=== PATIENT | female | born 1990 | race Caucasian/White ===

== ENCOUNTER 2019-03-27 09:55 | Emergency (ER) | payer BC, OTHER ==
[2019-03-27] MEDS ORDERED: CEPHALEXIN 250 MG CAP ONE (11:33)
[2019-03-27] MEDS ORDERED: LIDOCAINE 1% MPF 5 ML VIAL ONE (11:33)
[2019-03-27 11:56] LABS: Urine Blood 1+ (NEG); Urine Glucose NEGATIVE (NEG); Urine Protein TRACE (NEG)
--- NOTE | 2019-03-27 12:35 | EDPHYS ---
Physician Documentation [facility] Name: Darwin Sweeney Age: 28 yrs Sex: Female : 1990 Arrival Date: 03/27/2019 Time: 09:56 Bed 23 Private MD: ED Physician Alonso Heredia HPI: 03/27 11:31 This 28 yrs old Female presents to ER via Ambulatory with complaints of kb Abscess. 11:31 The patient presents with an abscess of the groin. Description: fluctuant, swollen. kb Onset: The symptoms/episode began/occurred 3 day(s) ago. Possible cause(s): unknown. Associated signs and symptoms: Pertinent positives: swelling. Modifying factors: the symptoms are alleviated by nothing, the symptoms are aggravated by pressure, squeezing the lesion and expressing the contents, touching. Severity of symptoms: At their worst the symptoms were moderate, in the emergency department the symptoms are unchanged. The patient has experienced similar episodes in the past. The patient has not recently seen a physician. Pt reports abscess that started 3 days ago to right groin area. . 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 - Coronavirus screen:: The patient has NOT traveled to [place] in the past 14 days. The patient has NOT had contact with known/suspected case of Coronavirus?. - Social history:: Smoking status: Patient denies any tobacco usage or history of. - Ebola Screening: : Patient negative for fever greater than or equal to 101.5 degrees Fahrenheit, and additional compatible Ebola Virus Disease symptoms Patient denies exposure to infectious person Patient denies travel to an Ebola-affected area in the 21 days before illness onset No symptoms or risks identified at this time. ROS: 11:29 Constitutional: Negative for fever, chills, and weight loss, Cardiovascular: Negative kb for chest pain, palpitations, and edema, Respiratory: Negative for shortness of breath, cough, wheezing, and pleuritic chest pain, Abdomen/GI: Negative for abdominal pain, nausea, vomiting, diarrhea, and constipation, Back: Negative for injury and pain, MS/Extremity: Negative for injury and deformity, Neuro: Negative for headache, weakness, numbness, tingling, and seizure. 11:29 Skin: Positive for abscess, of the groin. Exam: 11:29 Constitutional: This is a well developed, well nourished patient who is awake, alert, kb and in no acute distress. Head/Face: Normocephalic, atraumatic. Chest/axilla: Normal chest wall appearance and motion. Nontender with no deformity. No lesions are appreciated. Cardiovascular: Regular rate and rhythm with a normal S1 and S2. No gallops, murmurs, or rubs. Normal PMI, no JVD. No pulse deficits. Respiratory: Lungs have equal breath sounds bilaterally, clear to auscultation and percussion. No rales, rhonchi or wheezes noted. No increased work of breathing, no retractions or nasal flaring. Abdomen/GI: Soft, non-tender, with normal bowel sounds. No distension or tympany. No guarding or rebound. No evidence of tenderness throughout. Back: No spinal tenderness. No costovertebral tenderness. Full range of motion. MS/ Extremity: Pulses equal, no cyanosis. Neurovascular intact. Full, normal range of motion. Neuro: Awake and alert, GCS 15, oriented to person, place, time, and situation. Cranial nerves II-XII grossly intact. Motor strength 5/5 in all extremities. Sensory grossly intact. Cerebellar exam normal. Normal gait. 11:29 Skin: abscess, that is moderate sized, of the groin, with fluctuance, that is marked. Vital Signs: 10:42 BP 112 / 66; Pulse 91; Resp 16 S; Temp 98.3(O); Pulse Ox 99% on R/A; Weight 88.45 kg ca1 (R); Height 5 ft. 2 in. (157.48 cm) (R); 12:30 BP 103 / 58; Pulse 61; Resp 15; Pulse Ox 98% on R/A; vc 10:42 Body Mass Index 35.67 (88.45 kg, 157.48 cm) ca1 Procedures: 12:30 I \T\ D: Incision and drainage was performed for an abscess of the right groin Prepped kb with miguelangel. Anesthetized with 4 ml's 1% Lidocaine. Incised with #11 blade. Drained large amount purulent fluid. Cultures obtained. Abscess cavity explored. Packed with iodoform gauze, Dressing: sterile 4x4 gauze, the patient tolerated the procedure well, 2 incisions made to facilitate drainage of abscess and packing. . MDM: 11:12 Patient medically screened. kb 11:29 Data reviewed: vital signs, nurses notes. Data interpreted: Pulse oximetry: on room air kb is 99 %. Interpretation: normal. 12:32 Counseling: I had a detailed discussion with the patient and/or guardian regarding: the kb historical points, exam findings, and any diagnostic results supporting the discharge/admit diagnosis, the need for outpatient follow up, a general surgeon, to return to the emergency department if symptoms worsen or persist or if there are any questions or concerns that arise at home. ED course: Pt educated to return for worsening symptoms, follow up with a general surgeon to follow abscess progression and with her OB. Has an appt with OB on 04/02/19 and will have abscess re-evaluated. Pt will return or follow up with surgeon sooner if symptoms worsen. 03/27 11:23 Order name: Wound Culture 03/27 11:29 Order name: Urine Dipstick--Ancillary (enter results) 03/27 11:29 Order name: Urine --Ancillary (enter results) bd 03/27 11:56 Order name: Urine --Ancillary; Complete Time: 12:01 EDAK 03/27 11:56 Order name: Urine Dipstick-Ancillary; Complete Time: 12:01 [facility] 03/27 11:23 Order name: I\T\D Setup; Complete Time: 11:39 kb Administered Medications: 11:39 Drug: KeFLEX 500 mg Route: PO; iw 12:40 Follow up: Response: No adverse reaction vc 12:15 Drug: Lidocaine (1 %) 1 vials Volume: 5 ml; Route: Infiltration; vc Disposition: 13:31 Co-signature as Attending Physician, Alonso Heredia MD I agree with the assessment and kdr plan of care. Disposition: 03/27/19 12:35 Discharged to Home. Impression: Cutaneous abscess of groin. - Condition is Stable. - Discharge Instructions: Skin Abscess, [id number], Incision and Drainage, Care After. - Prescriptions for Keflex 500 mg Oral Capsule - take 1 capsule by ORAL route every 8 hours for 10 days; 30 capsule. - Medication Reconciliation Form, Thank You Letter, Antibiotic Education, Prescription Opioid Use form. - Follow up: Emergency Department; When: As needed; Reason: Worsening of condition. Follow up: Private Physician; When: 2 - 3 days; Reason: Recheck today's complaints, Continuance of care, Re-evaluation by your physician. Signatures: Dispatcher [employer] EDMS Sejal Gastelum, KIM-C KIM-CkAlonso Quiroz MD MD kdr Dalia Chávez RN RN iw Leona Ramirez RN RN ca1 Evelyn Toledo RN RN vc Corrections: (The following items were deleted from the chart) 13:00 12:35 03/27/2019 12:35 Discharged to Home. Impression: Cutaneous abscess of groin. vc Condition is Stable. Forms are Medication Reconciliation Form, Thank You Letter, Antibiotic Education, Prescription Opioid Use. Follow up: Emergency Department; When: As needed; Reason: Worsening of condition. Follow up: Private Physician; When: 2 - 3 days; Reason: Recheck today's complaints, Continuance of care, Re-evaluation by your physician. kb
--- NOTE | 2019-03-27 12:35 | ER ---
Nurse's Notes [facility] Name: Darwin Sweeney Age: 28 yrs Sex: Female : 1990 Arrival Date: 03/27/2019 Time: 09:56 Bed 23 Private MD: Diagnosis: Cutaneous abscess of groin Presentation: 03/27 10:39 Presenting complaint: Patient states: Abscess on R groin since 3 days ago and I am ca1 at 14 wks. Transition of care: patient was not received from another setting of care. Onset of symptoms was March 27, 2019. Risk Assessment: Do you want to hurt yourself or someone else? Patient reports no desire to harm self or others. Initial Sepsis Screen: Does the patient meet any 2 criteria? No. Patient's initial sepsis screen is negative. Does the patient have a suspected source of infection? No. Patient's initial sepsis screen is negative. Care prior to arrival: Medication(s) given: Tylenol. 10:39 Method Of Arrival: Ambulatory ca1 10:39 Acuity: EVANGELINA 4 ca1 Triage Assessment: 12:30 General: Appears in no apparent distress. uncomfortable, Behavior is calm, cooperative, vc appropriate for age. Pain: Complains of pain in upper inner thigh of right leg. 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 - Coronavirus screen:: The patient has NOT traveled to [place] in the past 14 days. The patient has NOT had contact with known/suspected case of Coronavirus?. - Social history:: Smoking status: Patient denies any tobacco usage or history of. - Ebola Screening: : Patient negative for fever greater than or equal to 101.5 degrees Fahrenheit, and additional compatible Ebola Virus Disease symptoms Patient denies exposure to infectious person Patient denies travel to an Ebola-affected area in the 21 days before illness onset No symptoms or risks identified at this time. Screenin:30 Abuse screen: Denies threats or abuse. Nutritional screening: No deficits noted. vc Tuberculosis screening: No symptoms or risk factors identified. Fall Risk None identified. Assessment: 11:30 General: Appears in no apparent distress. uncomfortable, Behavior is calm, cooperative, vc appropriate for age. Pain: Complains of pain in right upper thigh, groin area Pain currently is 8 out of 10 on a pain scale. Neuro: Level of Consciousness is awake, alert, obeys commands, Oriented to person, place, time, situation. Cardiovascular: Capillary refill < 3 seconds Patient's skin is warm and dry. Respiratory: Respiratory effort is even, unlabored, Respiratory pattern is regular, symmetrical. GI: No signs and/or symptoms were reported involving the gastrointestinal system. : No signs and/or symptoms were reported regarding the genitourinary system. EENT: No signs and/or symptoms were reported regarding the EENT system. Derm: Wound noted right upper inner thigh. Musculoskeletal: Circulation, motion, and sensation intact. Range of motion: intact in all extremities, Swelling present in right upper inner thigh. 12:37 Reassessment: Patient and/or family updated on plan of care and expected duration. Pain vc level reassessed. Patient is alert, oriented x 3, equal unlabored respirations, skin warm/dry/pink. Patient states feeling better. Patient states symptoms have improved. Vital Signs: 10:42 BP 112 / 66; Pulse 91; Resp 16 S; Temp 98.3(O); Pulse Ox 99% on R/A; Weight 88.45 kg ca1 (R); Height 5 ft. 2 in. (157.48 cm) (R); 12:30 BP 103 / 58; Pulse 61; Resp 15; Pulse Ox 98% on R/A; vc 10:42 Body Mass Index 35.67 (88.45 kg, 157.48 cm) ca1 ED Course: 09:56 Patient arrived in ED. as 10:40 Triage completed. ca1 10:42 Arm band placed on right wrist. ca1 10:45 Sejal Gastelum FNP-C is PHCP. kb 10:45 Alonso Heredia MD is Attending Physician. kb 11:22 Dalia Chávez, MARJ is Primary Nurse. iw 11:30 Patient has correct armband on for positive identification. vc 12:15 Assist provider with I \T\ D: of an abscess on right inner thigh Set up I\T\D tray. vc Performed by Sejal SIMMONS Culture sent to lab. Wound packed. iodoform gauze, Patient tolerated well. 12:15 Patient did not have IV access during this emergency room visit. vc Administered Medications: 11:39 Drug: KeFLEX 500 mg Route: PO; iw 12:40 Follow up: Response: No adverse reaction vc 12:15 Drug: Lidocaine (1 %) 1 vials Volume: 5 ml; Route: Infiltration; vc Outcome: 12:35 Discharge ordered by MD. milton 12:59 Discharged to home ambulatory. vc 12:59 Condition: good 12:59 Discharge instructions given to patient, Instructed on discharge instructions, follow up and referral plans. medication usage, wound care, Demonstrated understanding of instructions, follow-up care, medications, wound care, Prescriptions given X 1. 13:00 Patient left the ED. vc Addendum: 03/31/2019 10:39 Addendum: Culture Results: Positive wound culture. Bacteria is resistant to, has s s intermediate sensitivity, or is not tested against prescribed antibiotics. Report given to MEDARDO for further evaluation and then to lombardi developer for follow up with patient. Phone call Attempt #1 no answer, left VM by He Colvin RN. 12:34 Addendum: Culture Results: Positive wound culture. Bacteria is resistant to, has s g intermediate sensitivity, or is not tested against prescribed antibiotics. Report given to MEDARDO for further evaluation and then to lombardi developer for follow up with patient. Prescription called-in to pharmacy of choice. Levaquine 500 mg PO QD x 7 days, dispense 7 tabs, [facility] in . Signatures: Sejal Gastelum, IRIS GUZMÁNP-He Jara, Dora Wilkinson RN, Irene, RN RN iw Farhana Mariee RN RN ss Leona Ramirez RN RN ca1 Evelyn Toledo RN RN vc Corrections: (The following items were deleted from the chart) 03/27 10:41 10:39 Care prior to arrival: None. ca1 ca1
[2019-03-28 19:08] VITALS: TEMP 98.3
[2019-03-28 19:09] VITALS: BP 103/58; O2SAT 98
== END 2019-03-27 13:00 | disposition home or self-care (01) ==
LOC: ER 09:55
PROC: 0J980ZZ Drainage of Abdomen Subcutaneous Tissue and Fascia, Open Approach (ICD-10-PCS; principal; 2019-03-27)
DX: L02.214 Cutaneous abscess of groin (principal); Z88.5 Allergy status to narcotic agent
CPT/HCPCS: 81003; 81025; 87070; 87077; 87186; 87205; 99284

== ENCOUNTER 2022-07-06 09:38 | Emergency (ER) | payer OTHER ==
--- OUTSIDE RECORDS SUMMARY | 2022-07-06 09:41 | XMS REPORT | Continuity of Care Document ---
:1990 Author Organization [facility] t Address [address] [place] [address]. [address] [place] [address] Care Team Providers Name Role Phone Pcp, Patient Does Not Have A Primary Care Physician [phone] Dion Mejia Attending Clinician Unavailable Ilda Arizmendi Attending Clinician Unavailable Ilene Leung Attending Clinician Unknown, Attending Attending Clinician Unavailable ILENE GONZALES Attending Clinician Unavailable Doctor Unassigned, [place] Attending Clinician Unavailable Only, Adc Pob2 Test Attending Clinician Unavailable Mahesh Valdovinos DO Attending Clinician MAHESH VALDOVINOS Attending Clinician Unavailable Only, Ang Db Test Attending Clinician Unavailable Didi Rouse MD Attending Clinician DIDI ROUSE Attending Clinician Unavailable PAIGE LEES Attending Clinician Unavailable MARYA SAENZ Attending Clinician Unavailable SHIRLEY HURST Attending Clinician Unavailable SHIRLEY HURST Admitting Clinician Unavailable Payers Payer Name Policy Type Policy Number Effective Date Expiration Date S [facility] [id number] 2019 HEALTH CHOICE 00:00:00 [facility]ICAID [facility] [id number] 2020 [facility] HE[facility] CHO[facility] 00:00:00 [facility] [id number] 2020 [facility] HEALTH CHOICE 00:00:00 [facility] [id number] 2018 00:00:00 Problems Condition Condition Condition Status Onset Resolution Last Treating Co mments Source Name Details Category Date Date Treatment Clinician Date Disease Active 2019-02 U nivers depression depression 0-22 it y of 00:00: [address] Nexplanon Nexplanon Disease Active 2019-[address] in place 0-22 ity of 00:00: [address] Morbid Morbid Disease Active Univers obesity obesity 7- [place] 00 [place] dical of [facility] 40.0-49.9 40.0-49.9 Obesity Obesity Disease Active 2018-02 Univers (BMI (BMI 2-23 ity of 30-39.9) 30-39.9) 00:00: [address] [id number] Hypocalcem Problem Comm on ia Spirit - [facility] [id number] Morbid Problem Common obesity Spirit due to - [facility] excess [facility] Obese BMI Problem Common class II 37.0-37.9, Spir it adult - [facility] Tobacco Tobacco Problem Common use use Spirit disorder - [facility] [id number] Non-season Problem Com mon al Spirit [id number] AMBAR Problem Common (generaliz Spirit ed anxiety - [facility] disorder) [facility] Allergies, Adverse Reactions, Alerts Allergy Allergy Status Severity Reaction(s) Onset Inactive Treating Comm ents Source Name Type Date Date Clinician HYDROCOD DRUG Active N/V 2018-02 Univers ONE INGREDI 2-23 ity of 00:00: [address] Hydrocod Propensi Active Nausea 2018-02 Univer s one ty to and/or 2-23 ity of adverse Vomiting 00:00: [place] reaction Medical s Branch acetamin acetamin Active swelling Comm on ophen / ophen / Spirit hydrocod hydrocod - [facility] Social History Social Habit Start Date Stop Date Quantity Comments Source History [facility] o f Alcohol Frequency [place] M edical Branch History [facility] o f Alcohol Std [place] [facility] Drinks Branch History [facility] o f Alcohol Binge [place] [facility] Branch Sex Assigned At [facility] will[facility] - [facility] Exposure to 2022-04-03 2022-04-13 Not sure University of SARS-CoV-2 00:00:00 09:57:00 [facility] (event) Branch Tobacco use and 2022-04-13 2022-04-13 Smokeless tobacco Un iversity of exposure 00:00:00 00:00:00 non-user [facility] Alcohol intake 2022-04-13 2022-04-13 Current drinker Unive rsity of 00:00:00 00:00:00 of alcohol [facility] (finding) Branch Alcohol Comment 2019-02-04 2019-02-04 not during Universit y of 00:00:00 00:00:00 [place] [facility] History of 2019-01-28 Cigarette Smoker Universi ty of tobacco use 00:00:00 [facility] Smoking Status Start Date Stop Date Source Ex-smoker 2022-04-13 00:00:00 2022-04-13 00:00:00 Universi ty of [facility] Current Smoker 2022-02-22 00:00:00 [facility] Medications Ordered Filled Start Stop Current Ordering Indication Dosage Frequency Signature Comments Components Source Medication Medication Date Date Medication? Clinician (SIG) Name Name amoxicillin 2022- Yes [id number] 1{tbl} Take 1 Univers -clavulanat -04-24 tablet by it y of e 00:00: 05:59 mouth in [place] (AUGMENTIN) 00 :00 the Medical 875-125 mg morning Branch per tablet and 1 tablet in the evening. Do all this for 10 days. amoxicillin 2022- Yes [id number] 1{tbl} Take 1 Univers -clavulanat 3-12 tablet by it y of e 00:00: 05:59 mouth in [place] (AUGMENTIN) 00 :00 the Medical 875-125 mg morning Branch per tablet and 1 tablet in the evening. Do all this for 10 days. methylPREDN methylPREDN 2022- No QD methylPRED ISolone 4 ISolone 4 02-22 NISolone 4 MG MG 00:00: 00:00 MG 00 :00 methylPREDN methylPREDN 0 2022- No QD methylPRED ISolone 4 ISolone 4 -10 -16 NISolone 4 MG MG 00:00: 00:00 MG 00 :00 Phentermine Phentermine 2021- No 1{table QD Phentermin HCl 37.5 MG HCl 37.5 MG 906 t} e HCl 37.5 00:00: 00:00 MG 00 :00 amoxicillin 2021-2021- No [id number] 1{tbl} Take 1 Univers -clavulanat 09-29 tablet by it y of e 00:00: 04:59 mouth in [place] (AUGMENTIN) 00 :00 the Medical 875-125 mg morning Branch per tablet and 1 tablet in the evening. Do all this for 10 days. Phentermine Phentermine 2021- No 1{table QD Phentermin HCl 37.5 MG HCl 37.5 MG 8-04 t} e HCl 37.5 00:00: 00:00 MG 00 :00 Phentermine Phentermine 2021-2021- No 1{table QD Phentermin HCl 37.5 MG HCl 37.5 MG 7-04 t} e HCl 37.5 00:00: 00:00 MG 00 :00 Phentermine Phentermine 2021-2021- No 1{table QD Phentermin HCl 37.5 MG HCl 37.5 MG 7-06 20-04 t} e HCl 37.5 00:00: 00:00 MG 00 :00 Phentermine Phentermine 2021-2021- No 1{table QD Phentermin HCl 37.5 MG HCl 37.5 MG 7- t} e HCl 37.5 00:00: 00:00 MG 00 :00 Phentermine Phentermine 2021-2021- No 1{table QD Phentermin HCl 37.5 MG HCl 37.5 MG 7-06 20-04 t} e HCl 37.5 00:00: 00:00 MG 00 :00 Phentermine Phentermine 2021-2021- No 1{table QD Phentermin HCl 37.5 MG HCl 37.5 MG 704 t} e HCl 37.5 00:00: 00:00 MG 00 :00 Phentermine Phentermine 2021- No 1{table QD Phentermin HCl 37.5 MG HCl 37.5 MG 08-17 t} e HCl 37.5 00:00: 00:00 MG 00 :00 Escitalopra Escitalopra 0 No QD Escitalopr m Oxalate m Oxalate 5-16 am Oxalate 10 MG 10 MG 00:00: 10 MG 00 Escitalopra Escitalopra 0 No QD Escitalopr m Oxalate m Oxalate 5-16 am Oxalate 10 MG 10 MG 00:00: 10 MG 00 Tretinoin Tretinoin No QD 0.025 % 0.025 % 02-16 00:00: 00 Minocycline Minocycline 2021- No 1{table QD HCl 100 MG HCl 100 MG 02-16 t} 00:00: 00:00 00 :00 Spironolact Spironolact 2020-02- No 1{table QD Spironolac one 25 MG one 25 MG 03-14 t} tone 25 MG 00:00: 00:00 00 :00 Adapalene Adapalene 2020-02- No QD Adapalene 0.3 % 0.3 % 03-14 0.3 % 00:00: 00:00 00 :00 Spironolact Spironolact 2020-2021- No 1{table QD Spironolac one 25 MG one 25 MG 03-14 t} tone 25 MG 00:00: 00:00 00 :00 Adapalene Adapalene 2020-02- No QD Adapalene 0.3 % 0.3 % 03-14 0.3 % 00:00: 00:00 00 :00 SERTRALINE 2019-02 Yes [id number] 25mg TAKE 1 U nivers 25 mg 2-14 TABLET BY ity of tablet 00:00: [address] Branch SERTRALINE 2019-02 Yes [id number] 25mg TAKE 1 U nivers 25 mg 2-14 TABLET BY ity of tablet 00:00: [facility] Branch SERTRALINE 2019-02 Yes [id number] 25mg TAKE 1 U nivers 25 mg 2-14 TABLET BY ity of tablet 00:00: MOUTH [place] 00 DAILY Medical Branch SERTRALINE 2020-1 Yes [id number] 25mg TAKE 1 U nivers 25 mg 2-14 TABLET BY ity of tablet 00:00: MOUTH [place] 00 DAILY Medical Branch SERTRALINE 2020-1 Yes [id number] 25mg TAKE 1 U nivers 25 mg 2-14 TABLET BY ity of tablet 00:00: MOUTH [place] 00 DAILY Medical Branch SERTRALINE 2020-1 Yes [id number] 25mg TAKE 1 U nivers 25 mg 2-14 TABLET BY ity of tablet 00:00: MOUTH [place] 00 DAILY Medical Branch SERTRALINE 2020-1 Yes [id number] 25mg TAKE 1 U nivers 25 mg 2-14 TABLET BY ity of tablet 00:00: MOUTH [place] 00 DAILY Medical Branch 2020-0 Yes [id number] 1{tbl} Take 1 Univers vitamin 8-06 tablet by ity of w/FA tablet 00:00: mouth [place] 00 daily. Medical Branch docusate 2020-0 Yes [id number] 240mg Take 1 U nivers calcium 240 8-06 capsule by it y of mg capsule 00:00: mouth [place] 00 daily as Medical needed for Branch Constipati on. ferrous 2020-0 Yes [id number] 325mg Take 1 Un peggy sulfate 325 8-06 tablet by ity of mg (65 mg 00:00: mouth 2 [place] iron) 00 (two) Medical tablet times Branch daily. ibuprofen 2020-0 Yes [id number] 600mg Take 1 Univers 600 mg 8-06 tablet by ity of tablet 00:00: mouth [place] 00 every 6 Medical (six) Branch hours as needed for Pain (scale 1-3) or Pain (scale 4-6) (Pain). Take with food or milk. 2020-0 Yes [id number] 1{tbl} Take 1 Univers vitamin 8-06 tablet by ity of w/FA tablet 00:00: mouth [place] 00 daily. Medical Branch docusate 2020-0 Yes [id number] 240mg Take 1 U nivers calcium 240 8-06 capsule by it y of mg capsule 00:00: mouth [place] 00 daily as Medical needed for Branch Constipati on. ferrous 2020-0 Yes [id number] 325mg Take 1 Un peggy sulfate 325 8-06 tablet by ity of mg (65 mg 00:00: mouth 2 [place] iron) 00 (two) Medical tablet times Branch daily. ibuprofen 2020-0 Yes [id number] 600mg Take 1 Univers 600 mg 8-06 tablet by ity of tablet 00:00: mouth [place] 00 every 6 Medical (six) Branch hours as needed for Pain (scale 1-3) or Pain (scale 4-6) (Pain). Take with food or milk. 2020-0 Yes [id number] 1{tbl} Take 1 Univers vitamin 8-06 tablet by ity of w/FA tablet 00:00: mouth [place] 00 daily. Medical Branch docusate 2020-0 Yes [id number] 240mg Take 1 U nivers calcium 240 8-06 capsule by it y of mg capsule 00:00: mouth once [place] 00 daily as Medical needed for Branch Constipati on. ferrous 2020-0 Yes [id number] 325mg Take 1 Un peggy sulfate 325 8-06 tablet by ity of mg (65 mg 00:00: mouth 2 [place] iron) 00 (two) Medical tablet times Branch daily. ibuprofen 2020-0 Yes [id number] 600mg Take 1 Univers 600 mg 8-06 tablet by ity of tablet 00:00: mouth [place] 00 every 6 Medical (six) Branch hours as needed for Pain (scale 1-3) or Pain (scale 4-6) (Pain). Take with food or milk. 2020-0 Yes [id number] 1{tbl} Take 1 Univers vitamin 8-06 tablet by ity of w/FA tablet 00:00: mouth [place] 00 daily. Medical Branch docusate 2020-0 Yes [id number] 240mg Take 1 U nivers calcium 240 8-06 capsule by it y of mg capsule 00:00: mouth [place] 00 daily as Medical needed for Branch Constipati on. ferrous 2020-0 Yes [id number] 325mg Take 1 Un peggy sulfate 325 8-06 tablet by ity of mg (65 mg 00:00: mouth 2 [place] iron) 00 (two) Medical tablet times Branch daily. ibuprofen 2020-0 Yes [id number] 600mg Take 1 Univers 600 mg 8-06 tablet by ity of tablet 00:00: mouth [place] 00 every 6 Medical (six) Branch hours as needed for Pain (scale 1-3) or Pain (scale 4-6) (Pain). Take with food or milk. 2020-0 Yes [id number] 1{tbl} Take 1 Univers vitamin 8-06 tablet by ity of w/FA tablet 00:00: mouth [place] 00 daily. Medical Branch docusate 2020-0 Yes [id number] 240mg Take 1 U nivers calcium 240 8-06 capsule by it y of mg capsule 00:00: mouth once [place] 00 daily as Medical needed for Branch Constipati on. ferrous 2020-0 Yes [id number] 325mg Take 1 Un peggy sulfate 325 8-06 tablet by ity of mg (65 mg 00:00: mouth 2 [place] iron) 00 (two) Medical tablet times Branch daily. ibuprofen 2020-0 Yes [id number] 600mg Take 1 Univers 600 mg 8-06 tablet by ity of tablet 00:00: mouth [place] 00 every 6 Medical (six) Branch hours as needed for Pain (scale 1-3) or Pain (scale 4-6) (Pain). Take with food or milk. 2019-0 Yes [id number] 1{tbl} Take 1 Univers vitamin 8-06 tablet by ity of w/FA tablet 00:00: mouth [place] 00 daily. Medical Branch docusate 2020-0 Yes [id number] 240mg Take 1 U nivers calcium 240 8-06 capsule by it y of mg capsule 00:00: mouth once [place] 00 daily as Medical needed for Branch Constipati on. ferrous 2020-0 Yes [id number] 325mg Take 1 Un peggy sulfate 325 8-06 tablet by ity of mg (65 mg 00:00: mouth 2 [place] iron) 00 (two) Medical tablet times Branch daily. ibuprofen 2020-0 Yes [id number] 600mg Take 1 Univers 600 mg 8-06 tablet by ity of tablet 00:00: mouth [place] 00 every 6 Medical (six) Branch hours as needed for Pain (scale 1-3) or Pain (scale 4-6) (Pain). Take with food or milk. 2020-0 Yes [id number] 1{tbl} Take 1 Univers vitamin 8-06 tablet by ity of w/FA tablet 00:00: mouth [place] 00 daily. Medical Branch docusate 2020-0 Yes [id number] 240mg Take 1 U nivers calcium 240 8-06 capsule by it y of mg capsule 00:00: mouth once [place] 00 daily as Medical needed for Branch Constipati on. ferrous 2020-0 Yes [id number] 325mg Take 1 Un peggy sulfate 325 8-06 tablet by ity of mg (65 mg 00:00: mouth 2 [place] iron) 00 (two) Medical tablet times Branch daily. ibuprofen 2020-0 Yes [id number] 600mg Take 1 Univers 600 mg 8-06 tablet by ity of tablet 00:00: mouth [place] 00 every 6 Medical (six) Branch hours as needed for Pain (scale 1-3) or Pain (scale 4-6) (Pain). Take with food or milk. busPIRone busPIRone No BID busPIRone HCl 10 MG HCl 10 MG HCl 10 MG Symbicort Symbicort No 2{puffs BID Symbicort 80-4.5 80-4.5 } 80-4.5 MCG/ACT MCG/ACT MCG/ACT Multivitami Multivitami No Multivitam n n in Tretinoin Tretinoin No QD Tretinoin 0.025 % 0.025 % 0.025 % Vitamin D Vitamin D No Vitamin D Vitamin C Vitamin C No Vitamin C (Calcium (Calcium (Calcium Ascorbate) Ascorbate) Ascorbate) Symbicort Symbicort No 2{puffs QD Symbicort 80-4.5 80-4.5 } 80-4.5 MCG/ACT MCG/ACT MCG/ACT busPIRone busPIRone No BID busPIRone HCl 10 MG HCl 10 MG HCl 10 MG Symbicort Symbicort No 2{puffs BID Symbicort 80-4.5 80-4.5 } 80-4.5 MCG/ACT MCG/ACT MCG/ACT Multivitami Multivitami No Multivitam n n in Tretinoin Tretinoin No QD Tretinoin 0.025 % 0.025 % 0.025 % Vitamin D Vitamin D No Vitamin D Vitamin C Vitamin C No Vitamin C (Calcium (Calcium (Calcium Ascorbate) Ascorbate) Ascorbate) Vitamin D Vitamin D No Vitamin D Multivitami Multivitami No Multivitam n n in Vitamin C Vitamin C No Vitamin C (Calcium (Calcium (Calcium Ascorbate) Ascorbate) Ascorbate) Symbicort Symbicort No 2{puffs BID Symbicort 80-4.5 80-4.5 } 80-4.5 MCG/ACT MCG/ACT MCG/ACT Symbicort Symbicort No Symbicort 80-4.5 80-4.5 80-4.5 MCG/ACT MCG/ACT MCG/ACT Tretinoin Tretinoin No QD Tretinoin 0.025 % 0.025 % 0.025 % Vitamin D Vitamin D No Vitamin D Multivitami Multivitami No Multivitam n n in Vitamin C Vitamin C No Vitamin C (Calcium (Calcium (Calcium Ascorbate) Ascorbate) Ascorbate) Symbicort Symbicort No 2{puffs BID Symbicort 80-4.5 80-4.5 } 80-4.5 MCG/ACT MCG/ACT MCG/ACT Symbicort Symbicort No Symbicort 80-4.5 80-4.5 80-4.5 MCG/ACT MCG/ACT MCG/ACT Tretinoin Tretinoin No QD Tretinoin 0.025 % 0.025 % 0.025 % Multivitami Multivitami No Multivitam n n in Vitamin D Vitamin D No Vitamin D Symbicort Symbicort No Symbicort 80-4.5 80-4.5 80-4.5 MCG/ACT MCG/ACT MCG/ACT Escitalopra Escitalopra No 1{table QD Escitalopr m Oxalate m Oxalate t} am Oxalate 10 MG 10 MG 10 MG Vitamin C Vitamin C No Vitamin C (Calcium (Calcium (Calcium Ascorbate) Ascorbate) Ascorbate) Tretinoin Tretinoin No QD Tretinoin 0.025 % 0.025 % 0.025 % Symbicort Symbicort No 2{puffs BID Symbicort 80-4.5 80-4.5 } 80-4.5 MCG/ACT MCG/ACT MCG/ACT Multivitami Multivitami No Multivitam n n in Vitamin D Vitamin D No Vitamin D Symbicort Symbicort No Symbicort 80-4.5 80-4.5 80-4.5 MCG/ACT MCG/ACT MCG/ACT Escitalopra Escitalopra No 1{table QD Escitalopr m Oxalate m Oxalate t} am Oxalate 10 MG 10 MG 10 MG Vitamin C Vitamin C No Vitamin C (Calcium (Calcium (Calcium Ascorbate) Ascorbate) Ascorbate) Tretinoin Tretinoin No QD Tretinoin 0.025 % 0.025 % 0.025 % Symbicort Symbicort No 2{puffs BID Symbicort 80-4.5 80-4.5 } 80-4.5 MCG/ACT MCG/ACT MCG/ACT Multivitami Multivitami No Multivitam n n in Vitamin D Vitamin D No Vitamin D Symbicort Symbicort No Symbicort 80-4.5 80-4.5 80-4.5 MCG/ACT MCG/ACT MCG/ACT Escitalopra Escitalopra No 1{table QD Escitalopr m Oxalate m Oxalate t} am Oxalate 10 MG 10 MG 10 MG Vitamin C Vitamin C No Vitamin C (Calcium (Calcium (Calcium Ascorbate) Ascorbate) Ascorbate) Tretinoin Tretinoin No QD Tretinoin 0.025 % 0.025 % 0.025 % Symbicort Symbicort No 2{puffs BID Symbicort 80-4.5 80-4.5 } 80-4.5 MCG/ACT MCG/ACT MCG/ACT Symbicort Symbicort No 2{puffs BID Symbicort 80-4.5 80-4.5 } 80-4.5 MCG/ACT MCG/ACT MCG/ACT Symbicort Symbicort No Symbicort 80-4.5 80-4.5 80-4.5 MCG/ACT MCG/ACT MCG/ACT Multivitami Multivitami No Multivitam n n in Vitamin D Vitamin D No Vitamin D Vitamin C Vitamin C No Vitamin C (Calcium (Calcium (Calcium Ascorbate) Ascorbate) Ascorbate) Escitalopra Escitalopra No 1{table QD Escitalopr m Oxalate m Oxalate t} am Oxalate 10 MG 10 MG 10 MG Tretinoin Tretinoin No QD Tretinoin 0.025 % 0.025 % 0.025 % Vitamin D Vitamin D No Vitamin D Tretinoin Tretinoin No QD Tretinoin 0.025 % 0.025 % 0.025 % Multivitami Multivitami No Multivitam n n in Symbicort Symbicort No 2{puffs BID Symbicort 80-4.5 80-4.5 } 80-4.5 MCG/ACT MCG/ACT MCG/ACT Vitamin C Vitamin C No Vitamin C (Calcium (Calcium (Calcium Ascorbate) Ascorbate) Ascorbate) Symbicort Symbicort No Symbicort 80-4.5 80-4.5 80-4.5 MCG/ACT MCG/ACT MCG/ACT Escitalopra Escitalopra No 1{table QD Escitalopr m Oxalate m Oxalate t} am Oxalate 10 MG 10 MG 10 MG Symbicort Symbicort No Symbicort 80-4.5 80-4.5 80-4.5 MCG/ACT MCG/ACT MCG/ACT Tretinoin Tretinoin No QD Tretinoin 0.025 % 0.025 % 0.025 % Escitalopra Escitalopra No 1{table QD Escitalopr m Oxalate m Oxalate t} am Oxalate 10 MG 10 MG 10 MG Multivitami Multivitami No Multivitam n n in Azithromyci Azithromyci No QD Azithromyc n 250 MG n 250 MG in 250 MG Vitamin C Vitamin C No Vitamin C (Calcium (Calcium (Calcium Ascorbate) Ascorbate) Ascorbate) Vitamin D Vitamin D No Vitamin D Symbicort Symbicort No Symbicort 80-4.5 80-4.5 80-4.5 MCG/ACT MCG/ACT MCG/ACT Tretinoin Tretinoin No QD Tretinoin 0.025 % 0.025 % 0.025 % Escitalopra Escitalopra No 1{table QD Escitalopr m Oxalate m Oxalate t} am Oxalate 10 MG 10 MG 10 MG Multivitami Multivitami No Multivitam n n in Azithromyci Azithromyci No QD Azithromyc n 250 MG n 250 MG in 250 MG Vitamin C Vitamin C No Vitamin C (Calcium (Calcium (Calcium Ascorbate) Ascorbate) Ascorbate) Vitamin D Vitamin D No Vitamin D Multivitami Multivitami No Multivitam n n in Vitamin D Vitamin D No Vitamin D Symbicort Symbicort No 2{puffs QD Symbicort 80-4.5 80-4.5 } 80-4.5 MCG/ACT MCG/ACT MCG/ACT Vitamin C Vitamin C No Vitamin C (Calcium (Calcium (Calcium Ascorbate) Ascorbate) Ascorbate) Vitamin D Vitamin D No Vitamin D Multivitami Multivitami No Multivitam n n in Vitamin C Vitamin C No Vitamin C (Calcium (Calcium (Calcium Ascorbate) Ascorbate) Ascorbate) Symbicort Symbicort No 2{puffs QD Symbicort 80-4.5 80-4.5 } 80-4.5 MCG/ACT MCG/ACT MCG/ACT Vitamin D Vitamin D No Vitamin D Multivitami Multivitami No Multivitam n n in Vitamin C Vitamin C No Vitamin C (Calcium (Calcium (Calcium Ascorbate) Ascorbate) Ascorbate) Symbicort Symbicort No 2{puffs QD Symbicort 80-4.5 80-4.5 } 80-4.5 MCG/ACT MCG/ACT MCG/ACT Adapalene Adapalene No QD 0.3 % 0.3 % Symbicort Symbicort No 2{puffs QD 80-4.5 80-4.5 } MCG/ACT MCG/ACT Vitamin C Vitamin C No (Calcium (Calcium Ascorbate) Ascorbate) Multivitami Multivitami No n n Vitamin D Vitamin D No Symbicort Symbicort No 2{puffs QD Symbicort 80-4.5 80-4.5 } 80-4.5 MCG/ACT MCG/ACT MCG/ACT Symbicort Symbicort 2021- No 2{puffs BID 80-4.5 80-4.5 05-04 } MCG/ACT MCG/ACT 00:00 :00 Immunizations Ordered Filled Immunization Date Status Comments [facility] Immunization Name Name SARS-COV-2 COVID-19 2020-05-27 Completed Unive rsity of PFIZER VACCINE 00:00:00 [facility] SARS-COV-2 COVID-19 2020-05-27 Completed Unive rsity of PFIZER VACCINE 00:00:00 [facility] SARS-COV-2 COVID-19 2020-05-27 Completed Unive rsity of PFIZER VACCINE 00:00:00 [facility] SARS-COV-2 COVID-19 2020-05-27 Completed Unive rsity of PFIZER VACCINE 00:00:00 [facility] SARS-COV-2 COVID-19 2020-05-27 Completed Unive rsity of PFIZER VACCINE 00:00:00 [facility] SARS-COV-2 COVID-19 2020-05-27 Completed Unive rsity of PFIZER VACCINE 00:00:00 [facility] SARS-COV-2 COVID-19 2020-05-27 Completed Unive rsity of PFIZER VACCINE 00:00:00 [facility] SARS-COV-2 COVID-19 2020-05-06 Completed Unive rsity of PFIZER VACCINE 00:00:00 [facility] SARS-COV-2 COVID-19 2020-05-06 Completed Unive rsity of PFIZER VACCINE 00:00:00 [facility] SARS-COV-2 COVID-19 2020-05-06 Completed Unive rsity of PFIZER VACCINE 00:00:00 [facility] SARS-COV-2 COVID-19 2020-05-06 Completed Unive rsity of PFIZER VACCINE 00:00:00 [facility] SARS-COV-2 COVID-19 2020-05-06 Completed Unive rsity of PFIZER VACCINE 00:00:00 [facility] SARS-COV-2 COVID-19 2020-05-06 Completed Unive rsity of PFIZER VACCINE 00:00:00 [facility] SARS-COV-2 COVID-19 2020-05-06 Completed Unive rsity of PFIZER VACCINE 00:00:00 [facility] TDAP (ADACEL) 2019-07-04 Completed University of VACCINE 00:00:00 [facility] TDAP (ADACEL) 2019-07-04 Completed University of VACCINE 00:00:00 [facility] TDAP (ADACEL) 2019-07-04 Completed University of VACCINE 00:00:00 [facility] TDAP (ADACEL) 2019-07-04 Completed University of VACCINE 00:00:00 [facility] TDAP (ADACEL) 2019-07-04 Completed University of VACCINE 00:00:00 [facility] TDAP (ADACEL) 2019-07-04 Completed University of VACCINE 00:00:00 [facility] TDAP (ADACEL) 2019-07-04 Completed University of VACCINE 00:00:00 [facility] HPV 2013-02-13 Completed University of 00:00:00 [facility] HPV 2013-02-13 Completed University of 00:00:00 [facility] HPV 2013-02-13 Completed University of 00:00:00 [facility] HPV 2013-02-13 Completed University of 00:00:00 [facility] HPV 2013-02-13 Completed University of 00:00:00 [facility] Branch HPV 2013-02-13 Completed University of 00:00:00 [facility] HPV 2013-02-13 Completed University of 00:00:00 [facility] DTAP 2013-01-13 Completed University of 00:00:00 [facility] DTAP 2013-01-13 Completed University of 00:00:00 [facility] DTAP 2013-01-13 Completed University of 00:00:00 [place] [facility] DTAP 2013-01-13 Completed University of 00:00:00 [place] [facility] DTAP 2013-01-13 Completed University of 00:00:00 [place] [facility] DTAP 2013-01-13 Completed University of 00:00:00 [place] [facility] DTAP 2013-01-13 Completed University of 00:00:00 [place] [facility] TDAP 2004-09-13 Completed University of 00:00:00 [place] [facility] TDAP 2004-09-13 Completed University of 00:00:00 [place] [facility] TDAP 2004-09-13 Completed University of 00:00:00 [place] [facility] TDAP 2004-09-13 Completed University of 00:00:00 [place] [facility] TDAP 2004-09-13 Completed University of 00:00:00 [place] [facility] TDAP 2004-09-13 Completed University of 00:00:00 [place] [facility] TDAP 2004-09-13 Completed University of 00:00:00 [place] [facility] Hep B, Adol or Pedi 2002-04-13 Completed Unive rsity of Dosage 00:00:00 [place] [facility] Hep B, Adol or Pedi 2002-04-13 Completed Unive rsity of Dosage 00:00:00 [place] [facility] Hep B, Adol or Pedi 2002-04-13 Completed Unive rsity of Dosage 00:00:00 [place] [facility] Hep B, Adol or Pedi 2002-04-13 Completed Unive rsity of Dosage 00:00:00 [place] [facility] Hep B, Adol or Pedi 2002-04-13 Completed Unive rsity of Dosage 00:00:00 [place] [facility] Hep B, Adol or Pedi 2002-04-13 Completed Unive rsity of Dosage 00:00:00 [place] [facility] Hep B, Adol or Pedi 2002-04-13 Completed Unive rsity of Dosage 00:00:00 [place] [facility] Hep B, Adol or Pedi 2002-01-13 Completed Unive rsity of Dosage 00:00:00 [facility] Hep B, Adol or Pedi 2002-01-13 Completed [facility]ive rsity of Dosage 00:00:00 [facility] Hep B, Adol or Pedi 2002-01-13 Completed Unive rsity of Dosage 00:00:00 [facility] Hep B, Adol or Pedi 2002-01-13 Completed Unive rsity of Dosage 00:00:00 [facility] Hep B, Adol or Pedi 2002-01-13 Completed Unive rsity of Dosage 00:00:00 [facility] Hep B, Adol or Pedi 2002-01-13 Completed Unive rsity of Dosage 00:00:00 [facility] Hep B, Adol or Pedi 2002-01-13 Completed Unive rsity of Dosage 00:00:00 [facility] Hep B, Adol or Pedi 2001-11-13 Completed Unive rsity of Dosage 00:00:00 [facility] Varicella 2001-11-13 Completed University of (varivax)(chicken 00:00:00 [facility] Hep B, Adol or Pedi 2001-11-13 Completed Unive rsity of Dosage 00:00:00 [facility] Varicella 2001-11-13 Completed University of (varivax)(chicken 00:00:00 [facility] Hep B, Adol or Pedi 2001-11-13 Completed Unive rsity of Dosage 00:00:00 [facility] Varicella 2001-11-13 Completed University of (varivax)(chicken 00:00:00 [facility] Hep B, Adol or Pedi 2001-11-13 Completed Unive rsity of Dosage 00:00:00 [facility] Varicella 2001-11-13 Completed University of (varivax)(chicken 00:00:00 [facility] Hep B, Adol or Pedi 2001-11-13 Completed Unive rsity of Dosage 00:00:00 [facility] Varicella 2001-11-13 Completed University of (varivax)(chicken 00:00:00 [facility] Hep B, Adol or Pedi 2001-11-13 Completed Unive rsity of Dosage 00:00:00 [facility] Varicella 2001-11-13 Completed University of (varivax)(chicken 00:00:00 [facility] Hep B, Adol or Pedi 2001-11-13 Completed Unive rsity of Dosage 00:00:00 [facility] Varicella 2001-11-13 Completed University of (varivax)(chicken 00:00:00 [facility] TDAP 1995-08-14 Completed University of 00:00:00 [facility] TDAP 1995-08-14 Completed University of 00:00:00 [facility] TDAP 1995-08-14 Completed University of 00:00:00 [facility] TDAP 1995-08-14 Completed University of 00:00:00 [facility] TDAP 1995-08-14 Completed University of 00:00:00 [facility] TDAP 1995-08-14 Completed University of 00:00:00 [facility] TDAP 1995-08-14 Completed University of 00:00:00 [facility] TDAP 1991-12-15 Completed University of 00:00:00 [facility] TDAP 1991-12-15 Completed University of 00:00:00 [facility] TDAP 1991-12-15 Completed University of 00:00:00 [facility] TDAP 1991-12-15 Completed University of 00:00:00 [facility] TDAP 1991-12-15 Completed University of 00:00:00 [facility] TDAP 1991-12-15 Completed University of 00:00:00 [facility] TDAP 1991-12-15 Completed University of 00:00:00 [facility] TDAP 1990 Completed University of 00:00:00 [facility] TDAP 1990 Completed University of 00:00:00 [facility] TDAP 1990 Completed University of 00:00:00 [facility] TDAP 1990 Completed University of 00:00:00 [facility] TDAP 1990 Completed University of 00:00:00 [facility] TDAP 1990 Completed University of 00:00:00 [facility] TDAP 1990 Completed University of 00:00:00 [facility] TDAP 1990 Completed University of 00:00:00 [facility] TDAP 1990 Completed University of 00:00:00 [facility] TDAP 1990 Completed University of 00:00:00 [facility] TDAP 1990 Completed University of 00:00:00 [facility] TDAP 1990 Completed University of 00:00:00 [facility] TDAP 1990 Completed University of 00:00:00 [facility] TDAP 1990 Completed University of 00:00:00 [facility] TDAP 1990 Completed University of 00:00:00 [facility] TDAP 1990 Completed University of 00:00:00 [facility] TDAP 1990 Completed University of 00:00:00 [facility] TDAP 1990 Completed University of 00:00:00 [facility] TDAP 1990 Completed University of 00:00:00 [facility] TDAP 1990 Completed University of 00:00:00 [facility] TDAP 1990 Completed University of 00:00:00 [facility] Vital Signs Vital Name Observation Time Observation Value Comments Source Systolic blood 2022-04-13 16:02:00 137 mm[Hg] Univer sity of pressure [facility] Diastolic blood 2022-04-13 16:02:00 85 mm[Hg] Unive rsity of pressure [facility] Heart rate 2022-04-13 16:02:00 70 /min [facility] Body temperature 2022-04-13 16:02:[address] [facility] Res[facility] rate 2022-04-13 16:02:00 18 /min [facility] Body height 2022-04-13 16:02:00 157.5 cm [facility] Body weight 2022-04-13 16:02:00 87.601 kg [facility] BMI 2022-04-13 16:02:00 35.32 kg/m2 [facility] Oxygen saturation in 2022-04-13 16:02:00 100 /min [facility] Arterial blood by [facility] Pulse oximetry Branch height 2022-02-22 09:20:00 62 [in_i] [facility] weight 2022-02-22 09:20:00 180 [lb_av] [facility] bmi 2022-02-22 09:20:00 32.92 kg/m2 [facility] height 2021-10-19 11:50:00 62 [in_i] [facility] weight 2021-10-19 11:50:00 168 [lb_av] [facility] temperature 2021-10-19 11:50:00 97 [degF] [facility] bmi 2021-10-19 11:50:00 30.72 kg/m2 [facility] Systolic blood 2021-09-29 16:04:00 125 mm[Hg] Univer sity of [facility] Diastolic blood 2021-09-29 16:04:00 89 mm[Hg] Unive rsity of [facility] Heart rate 2021-09-29 16:04:00 80 /min Universi ty [facility] Body temperature 2021-09-29 16:04:00 36.89 [facility] rate 2021-09-29 16:04:00 16 /min [facility] Body height 2021-09-29 16:04:00 160 cm Universi ty [facility] Body weight 2021-09-29 16:04:00 80.74 kg Universi ty [facility] BMI 2021-09-29 16:04:00 31.53 kg/m2 [facility] Oxygen saturation in 2021-09-29 16:04:00 96 /min [facility] Arterial blood by [facility] Pulse oximetry Branch height 2021-09-17 07:50:00 62 [in_i] [facility] weight 2021-09-17 07:50:00 178 [lb_av] [facility] temperature 2021-09-17 07:50:00 98 [degF] [facility] bmi 2021-09-17 07:50:00 32.55 kg/m2 [facility] blood pressure 2021-09-17 07:50:00 122 mm[Hg] [facility] blood pressure 2021-09-17 07:50:00 70 mm[Hg] [facility] height 2021-08-17 07:50:00 62 [in_i] [facility] weight 2021-08-17 07:50:00 184 [lb_av] Common S pirit [facility] temperature 2021-08-17 07:50:00 97.3 [degF] Common S pirit [facility] bmi 2021-08-17 07:50:00 33.65 kg/m2 [facility] 2021-08-17 07:50:00 125 mm[Hg] [facility] blood pressure 2021-08-17 07:50:00 79 mm[Hg] [facility] height 2021-06-28 11:40:00 62 [in_i] Common S [facility] weight 2021-06-28 11:40:00 175 [lb_av] [facility] temperature 2021-06-28 11:40:00 98 [degF] [facility] bmi 2021-06-28 11:40:00 32 kg/m2 [facility] S pirit [facility] height 2021-04-27 14:30:00 62 [in_i] [facility] weight 2021-04-27 14:30:00 189.5 [lb_av] [facility] temperature 2021-04-27 14:30:00 97.9 [degF] [facility] bmi 2021-04-27 14:30:00 34.66 kg/m2 [facility] 2021-04-27 14:30:00 100 % [facility] respiratory rate 2021-04-27 14:30:00 17 /min [facility] blood pressure 2021-04-27 14:30:00 129 mm[Hg] Common [facility] - systolic [facility] blood pressure 2021-04-27 14:30:00 82 mm[Hg] Common [facility] - diastolic [facility] height 2021-02-16 11:40:00 62 [in_i] Common S pirit [facility] weight 2021-02-16 11:40:00 165 [lb_av] [facility] temperature 2021-02-16 11:40:00 98 [degF] [facility] bmi 2021-02-16 11:40:00 30.18 kg/m2 [facility] height 2021-01-12 08:00:00 62 [in_i] [facility] weight 2021-01-12 08:00:00 165 [lb_av] [facility] temperature 2021-01-12 08:00:00 97.4 [degF] [facility] bmi 2021-01-12 08:00:00 30.18 kg/m2 [facility] blood pressure 2021-01-12 08:00:00 120 mm[Hg] [facility] blood pressure 2021-01-12 08:00:00 76 mm[Hg] [facility] Procedures Procedure Date / Time Performed Performing Clinician [facility] PATIENT FINANCIAL 2022-04-13 15:57:24 Doctor Unassigned, No [facility] POLICY Name [facility] Branch ASSIGNMENT OF BENEFITS 2021-09-29 15:59:55 Doctor Unassigned, No [facility] Encounters Start End Encounter Admission Attending Care Care Encounter Source Date/Time Date/Time Type Type Clinicians Facility Department ID 2021-08-13 Outpatient Mejia, STLMLC STLMLC [id number] Common 09:09:02 [facility] 2021-03-10 Outpatient Mejia, STLMLC STLMLC [id number] Common 13:45:02 Dion [id number] [facility] 2021-03-10 Outpatient Kyleigh, STLMLC STLMLC [id number] Common 13:34:49 [facility] 2021-03-10 Outpatient Kyleigh, STLMLC STLMLC [id number] Common 13:34:28 Ilda [facility] 2021-03-10 Outpatient Kyleigh, STLMLC STLC [id number] Common 12:30:46 Ilda [id number] [facility] 2021-03-10 Outpatient Kyleigh, STLMLC STLC [id number] Common 12:14:18 Ilda 52772 [facility] 2020-12-11 Outpatient P [facility] WILLIE [id number] Univers 10:09:44 ity [facility] 2022-04-19 2022-04-19 [facility] [id number] Univers 00:00:00 00:00:00 [facility] [id number] it y of [place] [id number] [place] JAYA?BLEA [phone] [address] MEDICAL OFFICE BUILDING 2022-04-13 2022-04-13 Urgent [facility] [id number] Univers 10:00:00 10:20:00 Care Unknown, [facility] [id number] ity of [place] [id number] [place] JAYA?BLEA [phone] [address] MEDICAL OFFICE BUILDING 2022-04-13 2022-04-13 Outpatient R DORITANicko [facility] [id number] Univers 10:00:00 10:00:00 ILENE ity [facility] 2022-04-13 2022-04-13 Orders Doctor JULIANN [id number] Univers 00:00:00 00:00:00 Only Unassigned, JORGE [id number] ity of [place] [facility] [id number] [place] as [phone] [address] 2022-02-22 2022-02-22 [facility] [id number] Co mmon 00:00:00 00:00:00 VISIT EST Spir it PT LEVEL 3 - [facility] 2022-02-21 2022-02-21 [facility]TEL[facility] [id number] Co mmon 00:00:00 00:00:00 Spirit - [facility] 2021-10-19 2021-10-19 OFFICE STLMLC STLMLC [id number] Co mmon 00:00:00 00:00:00 VISIT EST Spir it PT LEVEL 3 - [facility] 2021-09-29 2021-09-29 Urgent Sid [facility] [id number] Univers 11:00:00 11:20:00 Care [facility] [id number] it y of [place] [id number] [place] JAYA?BLEA [phone] [address] MEDICAL OFFICE BUILDING 2021-09-29 2021-09-29 [facility] [id number] Univers 11:00:00 11:00:00 ILENE magdaleno [facility] 2021-09-29 2021-09-29 Orders Doctor JULIANN [id number] Univers 00:00:00 00:00:00 Only Unassigned, JORGE [id number] [facility] [id number] [place] [phone] [address] 2021-09-17 2021-09-17 OFFICE STLMLC STLMLC [id number] Co mmon 00:00:00 00:00:00 VISIT EST Spir it PT LEVEL 3 - [facility] 2021-08-18 2021-08-18 (TEL) STLMLC STLMLC [id number] Co mmon 00:00:00 00:00:00 Spirit - [facility] 2021-08-17 2021-08-17 OFFICE STLMLC STLMLC [id number] Co mmon 00:00:00 00:00:00 VISIT Spirit ESTAB PT - CHI LEVEL 4 [facility] 2021-08-17 2021-08-17 (TEL) STLMLC STLMLC [id number] Co mmon 00:00:00 00:00:00 Spirit - [facility] 2021-06-28 2021-06-28 OFFICE STLMLC STLMLC [id number] Co mmon 00:00:00 00:00:00 VISIT Spirit ESTAB PT - CHI LEVEL 4 [facility] 2021-06-28 2021-06-28 (TEL) STLMLC STLMLC [id number] Co mmon 00:00:00 00:00:00 [facility] 2021-04-28 2021-04-28 (TEL) STLMLC STLMLC [id number] Co mmon 00:00:00 00:00:00 [facility] 2021-04-27 2021-04-27 PREV VISIT STLMLC STLMLC [id number] Common 00:00:00 00:00:00 EST AGE [facility] 18-39 - [facility] 2021-02-16 2021-02-16 OFFICE STLMLC STLMLC [id number] Co mmon 00:00:00 00:00:00 VISIT Spirit ESTAB PT - CHI LEVEL 4 [facility] 2021-02-11 2021-02-11 (TEL) STLMLC STLMLC [id number] Co mmon 00:00:00 00:00:00 [facility] 2021-02-10 2021-02-10 Laboratory Only, Adc Pob2 Test [facility] [id number] .[id number] [id number] Univers 16:00:00 16:23:14 Only Mahesh Valdovinos [id number] [facility] [phone] [place] [address] Branch BUILDING 2021-02-10 2021-02-10 Outpatient R BONIFACIO [facility] [id number] Univers 16:00:00 16:00:00 MAHESH magdaleno [facility] 2021-02-09 2021-02-09 Laboratory Only, Ang Db Test [facility] 1.2.8 [id number] [id number] Univers 18:15:00 18:30:00 Only Didi Rouse [id number] [place] [id number] [place] JAYA?BLEA [phone] [facility] [address] MEDICAL OFFICE BUILDING 2021-02-09 2021-02-09 Outpatient R ASAF [facility] [id number] Univers 18:15:00 18:15:00 DIDI [facility] 2021-01-20 2021-01-20 (TEL) STLMLC STLMLC [id number] Co mmon 00:00:00 00:00:00 [facility] 2021-01-12 2021-01-12 OFFICE STLMLC STLMLC [id number] Co mmon 00:00:00 00:00:00 VISIT [facility] 4 [facility] 2021-01-11 2021-01-11 (TEL) STLMLC STLMLC [id number] Co mmon 00:00:00 00:00:00 [facility] 2020-10-14 2020-10-14 Outpatient STLMLC STLMLC [id number] Common 00:00:00 00:00:00 [facility] 2020-09-17 2020-09-17 Outpatient STLMLC STLMLC [id number] Common 00:00:00 00:00:00 [facility] 2020-05-27 2020-05-27 Outpatient Fabián LEES, [facility] [id number] Univers 12:30:00 12:30:00 PAIGE [facility] 2020-05-06 2020-05-06 [facility] [id number] Univers 12:20:00 12:20:00 [facility] 2020-04-27 2020-04-27 Outpatient Fabián SAENZ, [facility] [id number] Univers 09:00:00 09:00:00 [facility] 2020-03-09 2020-03-09 Outpatient Fabián SAENZ, [facility] [id number] Univers 10:30:00 10:30:00 [facility] 2020-02-03 2020-02-03 Outpatient STLMLC STLMLC [id number] Common 00:00:00 00:00:00 [facility] 2020-01-30 2020-01-30 Outpatient STLMLC STLMLC [id number] Common 00:00:00 00:00:00 [facility] 2019-12-05 2019-12-05 Outpatient R SHIRLEY HURST [facility] [id number] Univers 08:00:00 08:00:00 ity [facility] 2019-11-25 2019-11-25 Outpatient R SHIRLEY HURST [facility] [id number] Univers 13:30:00 13:30:00 ity [facility] 2019-10-28 2019-10-28 Outpatient R LETTY [facility] [id number] Univers 11:30:00 11:30:00 [facility] 2019-10-11 2019-10-11 Outpatient R BLADIMIRTIFFANY [facility] [id number] Univers 11:15:00 11:15:00 [facility] 2019-09-17 2019-09-17 Outpatient R [facility] [id number] Univers 15:00[facility]00 [facility]-09-13 2019-09-13 Outpatient R SHIRLEY HURST [facility] [id number] Univers 15:30:00 15:30:00 [facility] 2019-09-05 2019-09-05 Outpatient R [facility] [id number] Univers 09:15:00 09:15:[facility] 2019-09-04 2019-09-04 Outpatient R LETTY [facility] [id number] Univers 11:30:00 11:30:00 [facility] 2019-08-23 2019-08-23 Outpatient R SHIRLEY HURST [facility] [id number] Univers 13:15:00 13:15:00 [facility] 2019-08-22 2019-08-22 Outpatient R SHIRLEY HURST [facility] [id number] Univers 11:15:00 11:15:[facility] 2019-08-08 2019-08-08 Outpatient R CRYSTALSCOTT [facility] [id number] Univers 10:00:00 10:00:00 [facility] 2019-08-02 2019-08-02 Outpatient R LETTY [facility] [id number] Univers 09:00:00 09:00:00 [facility] 2019-07-18 2019-07-18 Outpatient R SHIRLEY HURST [facility] [id number] Univers 08:45:00 08:45:00 ity [facility] 2019-07-11 2019-07-11 Outpatient R [facility] [id number] Univers 08:00:00 08:00:00 ity [facility] 2019-07-04 2019-07-04 Outpatient R LETTY [facility] [id number] Univers 08:00:00 08:00:00 MARYA ity [facility] 2019-06-06 2019-06-06 Outpatient R SHIRLEY HURST [facility] [id number] Univers 08:30:00 08:30:00 ity [facility] 2019-05-09 2019-05-09 Outpatient R SHIRLEY HURST [facility] [id number] Univers 08:30:00 08:30:00 ity [facility] 2019-05-06 2019-05-06 Outpatient R [facility] [id number] Univers 08:30:00 08:30:00 ity [facility] 2019-05-03 2019-05-03 Outpatient P [facility] [id number] Univers 08:00:00 08:00:00 ity [facility] 2019-04-16 2019-04-16 Outpatient R [facility] [id number] Univers 08:45:00 08:45:00 ity [facility] 2019-04-08 2019-04-08 [facility] [id number] Univers 08:00:00 08:00:00 [facility] Results This patient has no known results.
[2022-07-06] MEDS ORDERED: FAMOTIDINE 20 MG/2 ML VIAL IV ONE (10:06)
[2022-07-06] MEDS ORDERED: NA CHLORIDE 0.9% 1,000 ML ONE (10:07)
[2022-07-06 10:18] LABS: Specific Gravity 1.028 (1.005-1.030)
[2022-07-06 10:21] LABS: Absolute Lymphocytes (CBC) 2.3 K/uL (0.7-4.9); Hematocrit 37.6 % (36.0-45.0); Lymphocytes % 23.1 % (15.3-44.8); MCV 96.4 fL (80-100); MPV 8.9 fL (7.6-11.3)
[2022-07-06 10:25] LABS: Specific Gravity 1.028 (1.005-1.030); Urine Bacteria None Seen /HPF (<20); Urine Bilirubin NEGATIVE (Negative); Urine Blood 1+ (Negative); Urine Clarity Clear (Clear); Urine Color Light-Yellow (Yellow); Urine Glucose NEGATIVE (Negative); Urine Mucus Slight /HPF (None Seen); Urine Protein NEGATIVE (Negative); Urine Urobilinogen Normal (Normal)
[2022-07-06 10:59] LABS: Albumin 3.6 g/dL (3.4-5.0); Bilirubin Total 0.5 mg/dL (0.2-1.0); Potassium 3.8 mEq/L (3.5-5.1); Protein, Total 8.3 g/dL (6.4-8.2)
--- NOTE | 2022-07-06 11:03 | RAD REPORT ---
EXAM DESCRIPTION: CT - Abdomen Pelvis W Contrast - 07/06/2022 10:32 am CLINICAL HISTORY: Abdominal pain COMPARISON: none. TECHNIQUE: Computed axial tomography of the abdomen pelvis was obtained. 100 cc Isovue-300 was admin istered intravenously. Oral contrast was not requested which limits evaluation of bowel and appendix All CT scans are performed using dose optimization technique as appropriate and may include automated exposure control or mA/KV adjustment according to patient size. FINDINGS: The liver, spleen, pancreas, adrenal and kidneys appear unremarkable. There is no evidence of diverticulitis. Abnormal appendix. 2.3 centimeter left ovarian cyst without significant free fluid IMPRESSION: 2.3 centimeter left ovarian cyst without significant free fluid
--- NOTE | 2022-07-06 11:23 | ER ---
Nurse's Notes [facility] [place] Name: Darwin Sweeney Age: 32 yrs Sex: Female : 1990 Arrival Date: 07/06/2022 Time: 09:38 Bed 14 Private MD: Diagnosis: Abdominal pain, unspecified;Other and unspecified ovarian cysts Presentation: 07/06 09:50 Chief complaint: Patient states: woke up with abd pain, pale sweating, feels sore rivera iw belly button, reports low grade temp. Coronavirus screen: At this time, the client does not indicate any symptoms associated with coronavirus-19. Ebola Screen: Patient negative for fever greater than or equal to 101.5 degrees Fahrenheit, and additional compatible Ebola Virus Disease symptoms Patient denies exposure to infectious person. Patient denies travel to an Ebola-affected area in the 21 days before illness onset. No symptoms or risks identified at this time. Initial Sepsis Screen: Does the patient meet any 2 criteria? No. Patient's initial sepsis screen is negative. Does the patient have a suspected source of infection? No. Patient's initial sepsis screen is negative. Risk Assessment: Do you want to hurt yourself or someone else? Patient reports no desire to harm self or others. Onset of symptoms was July 06, 2022. 09:50 Method Of Arrival: Ambulatory iw 09:50 Acuity: EVANGELINA 3 iw Triage Assessment: 10:19 General: Appears in no apparent distress. comfortable, Behavior is calm, cooperative, nj1 appropriate for age. Pain: Complains of pain in abdomen Pain currently is 6 out of 10 on a pain scale. Neuro: Level of Consciousness is awake, alert, obeys commands, Oriented to person, place, time, situation. Cardiovascular: Patient's skin is warm and dry. Respiratory: Airway is patent Respiratory effort is even, unlabored. GI: Reports lower abdominal pain, Patient currently denies nausea. 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 - Social history:: Smoking status: . Screenin:19 [facility] ED Fall Risk Assessment (Adult) History of falling in the last 3 months, nj1 including since admission No falls in past 3 months (0 pts) Confusion or Disorientation No (0 pts) Intoxicated or Sedated No (0 pts) Impaired Gait No (0 pts) Mobility Assist Device Used No (0 pt) Altered Elimination No (0 pt) Score/Fall Risk Level 0 - 2 = Low Risk Oriented to surroundings, Maintained a safe environment, Hourly rounding (assess needs \T\ fall precautionary measures) done. Abuse screen: Denies threats or abuse. Denies injuries from another. Nutritional screening: No deficits noted. Tuberculosis screening: No symptoms or risk factors identified. Assessment: 11:40 Reassessment: Patient appears in no apparent distress at this time. Patient and/or nj1 family updated on plan of care and expected duration. Pain level reassessed. Patient is alert, oriented x 3, equal unlabored respirations, skin warm/dry/pink. Pain: Complains of pain in abdomen Pain currently is 6 out of 10 on a pain scale. 12:18 Reassessment: Patient appears in no apparent distress at this time. Patient and/or nj1 family updated on plan of care and expected duration. Pain level reassessed. Patient is alert, oriented x 3, equal unlabored respirations, skin warm/dry/pink. Vital Signs: 09:51 BP 120 / 85; Pulse 70; Resp 18; Temp 99.3; Pulse Ox 99% on R/A; iw 11:26 BP 119 / 76; Pulse 58; Resp 16; Pulse Ox 100% on R/A; nj1 11:42 Pain 6/10; nj1 12:18 BP 132 / 84; Pulse 69; Resp 16; Temp 98.1(O); Pulse Ox 100% ; Pain 3/10; nj1 11:42 Pain Scale: Adult nj1 12:18 Pain Scale: Adult nj1 ED Course: 09:39 Patient arrived in ED. rg4 09:40 Kayla Crawford FNP-C [facility] snw 09:40 Ramon Dominguez MD is Attending Physician. snw 09:51 Triage completed. iw 09:52 Arm band placed on. iw 09:53 Kitty Quesada, MARJ is Primary Nurse. nj1 10:06 Radiology exam delayed due to test not completed at this time. sj 10:10 Inserted saline lock: 20 gauge in left antecubital area, using aseptic technique. Blood nj1 collected. 10:20 Patient has correct armband on for positive identification. Bed in low position. Call nj1 light in reach. 10:34 CT Abd/Pelvis - IV Contrast Only In Process Unspecified. EDMS 12:18 No provider procedures requiring assistance completed. IV discontinued, intact, nj1 bleeding controlled. Administered Medications: 10:10 Drug: NS 0.9% IV 1000 ml Route: IV; Rate: 1 bolus; Site: left antecubital; nj1 11:00 Follow up: Response: No adverse reaction nj1 12:19 Follow up: IV Status: Completed infusion; IV Intake: 1000ml nj1 10:15 Drug: Famotidine IVP 20 mg Route: IVP; Site: left antecubital; nj1 11:00 Follow up: Response: No adverse reaction nj1 11:42 Drug: Ketorolac IVP 15 mg Route: IVP; Site: left antecubital; nj1 12:19 Follow up: Response: No adverse reaction; Pain is decreased nj1 Medication: 12:18 VIS not applicable for this client. nj1 Intake: 12:19 IV: 1000ml; Total: 1000ml. nj1 Outcome: 11:22 Discharge ordered by . snw 12:18 Discharged to home ambulatory. nj1 12:18 Condition: stable 12:18 Discharge instructions given to patient, Instructed on discharge instructions, follow up and referral plans. medication usage, Demonstrated understanding of instructions, follow-up care, medications, Prescriptions given X 1. 12:20 Patient left the ED. nj1 Signatures: Dispatcher [employer] EDMI Kayla Crawford, MOTOR BOSS-C MOTOR BOSS-Csnw Unique Doshi Irene, RN Rosa Michael rg4 Kitty Quesada RN RN nj1 Corrections: (The following items were deleted from the chart) 10:43 10:19 Pain: Complains of pain in abdomen nj1 nj1 10:43 10:19 GI: Reports lower abdominal pain, nausea, nj1 nj1
--- NOTE | 2022-07-06 11:23 | EDPHYS ---
Physician Documentation [facility] Name: Darwin Sweeney Age: 32 yrs Sex: Female : 1990 Arrival Date: 07/06/2022 Time: 09:38 Bed 14 Private MD: ED Physician Ramon Dominguez HPI: 07/06 11:25 This 32 yrs old Female presents to ER via Ambulatory with complaints of Abdominal Pain. snw 11:25 The patient presents with abdominal pain. Onset: The symptoms/episode began/occurred snw suddenly, 3am. The symptoms do not radiate. The symptoms are described as sharp, stabbing. The patient has not experienced similar symptoms in the past. 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 - Social history:: Smoking status: . ROS: 11:24 Constitutional: Negative for fever, chills, and weight loss, Eyes: Negative for injury, snw pain, redness, and discharge, ENT: Negative for injury, pain, and discharge, Neck: Negative for injury, pain, and swelling, Cardiovascular: Negative for chest pain, palpitations, and edema, Respiratory: Negative for shortness of breath, cough, wheezing, and pleuritic chest pain, Back: Negative for injury and pain, : Negative for injury, bleeding, discharge, and swelling, MS/Extremity: Negative for injury and deformity, Skin: Negative for injury, rash, and discoloration, Neuro: Negative for headache, weakness, numbness, tingling, and seizure, Psych: Negative for depression, anxiety, suicide ideation, homicidal ideation, and hallucinations. 11:24 Abdomen/GI: Positive for abdominal pain, abdominal cramps. Exam: 09:54 Head/Face: Normocephalic, atraumatic. Eyes: Pupils equal round and reactive to light, snw extra-ocular motions intact. Lids and lashes normal. Conjunctiva and sclera are non-icteric and not injected. Cornea within normal limits. Periorbital areas with no swelling, redness, or edema. ENT: Nares patent. No nasal discharge, no septal abnormalities noted. Tympanic membranes are normal and external auditory canals are clear. Oropharynx with no redness, swelling, or masses, exudates, or evidence of obstruction, uvula midline. Mucous membranes moist. Neck: Trachea midline, no thyromegaly or masses palpated, and no cervical lymphadenopathy. Supple, full range of motion without nuchal rigidity, or vertebral point tenderness. No Meningismus. Chest/axilla: Normal chest wall appearance and motion. Nontender with no deformity. No lesions are appreciated. Cardiovascular: Regular rate and rhythm with a normal S1 and S2. No gallops, murmurs, or rubs. Normal PMI, no JVD. No pulse deficits. Respiratory: Lungs have equal breath sounds bilaterally, clear to auscultation and percussion. No rales, rhonchi or wheezes noted. No increased work of breathing, no retractions or nasal flaring. Back: No spinal tenderness. No costovertebral tenderness. Full range of motion. Skin: Warm, dry with normal turgor. Normal color with no rashes, no lesions, and no evidence of cellulitis. MS/ Extremity: Pulses equal, no cyanosis. Neurovascular intact. Full, normal range of motion. Neuro: Awake and alert, GCS 15, oriented to person, place, time, and situation. Cranial nerves II-XII grossly intact. Motor strength 5/5 in all extremities. Sensory grossly intact. Cerebellar exam normal. Normal gait. Psych: Awake, alert, with orientation to person, place and time. Behavior, mood, and affect are within normal limits. 09:54 Constitutional: The patient appears alert, awake, pale. 09:54 Abdomen/GI: Inspection: abdomen appears normal, Bowel sounds: diminished, Palpation: mild abdominal tenderness, in the right upper quadrant and left upper quadrant, moderate abdominal tenderness, in the right lower quadrant, Indicators: McBurney's point is tender. Vital Signs: 09:51 BP 120 / 85; Pulse 70; Resp 18; Temp 99.3; Pulse Ox 99% on R/A; iw 11:26 BP 119 / 76; Pulse 58; Resp 16; Pulse Ox 100% on R/A; nj1 11:42 Pain 6/10; nj1 12:18 BP 132 / 84; Pulse 69; Resp 16; Temp 98.1(O); Pulse Ox 100% ; Pain 3/10; nj1 11:42 Pain Scale: Adult nj1 12:18 Pain Scale: Adult nj1 MDM: 09:53 Patient medically screened. snw 11:23 Differential diagnosis: appendicitis, bowel obstruction, cholecystitis, Cholelithiasis, snw Dysmenorrhea, Endometriosis, urinary tract infection. Data reviewed: vital signs, nurses notes. I considered the following discharge prescriptions or medication management in the emergency department Medications were administered in the Emergency Department. See MAR. Counseling: I had a detailed discussion with the patient and/or guardian regarding: the historical points, exam findings, and any diagnostic results supporting the discharge/admit diagnosis, the presence of at least one elevated blood pressure reading (>120/80) during this emergency department visit, lab results, radiology results, the need for outpatient follow up, for definitive care, to return to the emergency department if symptoms worsen or persist or if there are any questions or concerns that arise at home. Special discussion: Based on the history and exam findings, there is no indication for further emergent testing or inpatient evaluation. I discussed with the patient/guardian the need to see the OB Gyne specialist for further evaluation of the symptoms. I discussed with the patient/guardian the need to see the primary care provider for further evaluation of the symptoms. 07/06 09:53 Order name: CBC with Diff; Complete Time: 10:29 w 07/06 09:53 Order name: CMP; Complete Time: 11:16 07/06 09:53 Order name: Lipase; Complete Time: 11:16 07/06 09:53 Order name: Test, Urine; Complete Time: 10:25 07/06 09:53 Order name: Urinalysis w/ reflexes; Complete Time: 10:25 w 07/06 09:53 Order name: CT Abd/Pelvis - IV Contrast Only; Complete Time: 11:16 07/06 09:53 Order name: IV Saline Lock; Complete Time: 10:18 w 07/06 09:53 Order name: Labs collected and sent; Complete Time: 10:18 snw Administered Medications: 10:10 Drug: NS 0.9% IV 1000 ml Route: IV; Rate: 1 bolus; Site: left antecubital; nj1 11:00 Follow up: Response: No adverse reaction nj1 12:19 Follow up: IV Status: Completed infusion; IV Intake: 1000ml nj1 10:15 Drug: Famotidine IVP 20 mg Route: IVP; Site: left antecubital; nj1 11:00 Follow up: Response: No adverse reaction nj1 11:42 Drug: Ketorolac IVP 15 mg Route: IVP; Site: left antecubital; nj1 12:19 Follow up: Response: No adverse reaction; Pain is decreased nj1 Disposition Summary: 07/06/22 11:22 Discharge Ordered Location: Home snw Condition: Stable snw Diagnosis - Abdominal pain, unspecified snw - Other and unspecified ovarian cysts snw Followup: snw - With: Emergency Department - When: As needed - Reason: Worsening of condition Followup: snw - With: Private Physician - When: 2 - 3 days - Reason: Recheck today's complaints, Continuance of care, Re-evaluation by your physician Discharge Instructions: - Discharge Summary Sheet snw - Abdominal Pain, Adult snw - Ovarian Cyst snw - Gas and Gas Pains, Pediatric snw - [place] Diet snw Forms: - Work release form snw - Medication Reconciliation Form snw - Thank You Letter snw - Antibiotic Education snw - Prescription Opioid Use snw Prescriptions: - Diclofenac Sodium 75 mg Oral Tablet Sustained Release - take 1 tablet by ORAL route 2 times per day; 30 tablet; Refills: 0, Product snw Selection Permitted Signatures: Dispatcher [employer] Kayla Wilhelm FNP-C CLINICAL LABORATORY AIDE-Csnw Dalia Chávez, RN MARJ iw Kitty Quesada RN RN nj1
[2022-07-06] MEDS ORDERED: KETOROLAC 30 MG/ML INJ ONE (11:48)
[2022-07-06 12:26] VITALS: O2SAT 100
[2022-07-06 12:29] VITALS: BP 132/84; TEMP 98.1
== END 2022-07-06 12:20 | disposition home or self-care (01) ==
LOC: ER 09:38
DX: N83.291 Other ovarian cyst, right side (principal); Z88.5 Allergy status to narcotic agent
CPT/HCPCS: 85025; 81001; 36415; 81025; 83690; 80053; 74177; Q9967; J7030

== ENCOUNTER 2024-05-01 10:28 | Emergency (ER) | payer BC, OTHER ==
--- OUTSIDE RECORDS SUMMARY | 2024-05-01 10:33 | XMS REPORT | Continuity of Care Document ---
Author Name Unknown Address [address] [facility] [place] [address] [facility] Address [address] [facility] [place] [address] Care Team Providers Care Cinder Block Mason Name Role Phone Mart Mejiamitra Maharaj Primary Care Physician [phone] DEBI MURRAY Attending Clinician DEBI Cody Attending Clinician Ugo dsouza Doctor Unassigned, Bladen Attending Clinician U Debi Mojica MD Attending Clinician + [phone] Doctor Unassigned, Bladen Attending Clinician U Ilene Dunaway Attending Clinician [phone] Unknown, Attending Attending Clinician Unavailab ILENE Anrold Attending Clinician Unavailable Only, Adc Pob2 Test Attending Clinician Unavaila ble Mahesh Valdovinos DO Attending Clinician [phone] MAHESH VALDOVINOS Attending Clinician Unavail able Only, Ang Db Test Attending Clinician UnavailDidi Meza MD Attending Clinician [phone] DIDI ROUSE Attending Clinician Unavailable PAIGE LEES Attending Clinician Unavailable MARYA SAENZ Attending Clinician Unavailable Shirley Hurst MD Attending Clinician [phone] SHIRLEY HURST Attending Clinician Unavailable SHIRLEY HURST Admitting Clinician Unavailable Payers Payer Name Policy Type Policy Number Effective Date Expirati on Date Source [employer] MEDICAID [id number] 2019 00:00:00 Problems Condition Name Condition Details Condition Category Status Onset Date Resolution Date Last Treatment Date Treating Clinician Comments Source depression depression Disease Active 2019-02 0- 00:00: 00 [facility] Nexplanon in place Nexplanon in place Disease Active 2019-02 0-22 00:00: 00 [facility] Morbid obesity with body mass index of 40.0-49.9 Morbid obesity with body mass index of 40.0-49.9 Disease Active 7-22 00:00: 00 [facility] Obesity (BMI 30-39.9) Obesity (BMI 30-39.9) Disease Active 2018-02 2-23 00:00: 00 [facility] Acute urinary retention Acute urinary retention Disease Resolve d 2019-0 8-06 00:00: 00 2019-10-28 00:00:00 2019-10-28 12:00:43 [facility] Liveborn , of vazquez , born in hospital by vaginal delivery Liveborn , of vazquez , born in hospital by vaginal delivery Disease Resolve d 2019-0 8-05 00:00: 00 2019-10-28 00:00:00 2019-10-28 12:00:43 [facility] 39 weeks gestation of 39 weeks gestation of Disease Resolve d 2019-0 8-04 00:00: 00 2019-10-28 00:00:00 2019-10-28 12:00:43 [facility] History of herpes genitalis History of herpes genitalis Disease Resolve d 2019-0 8-04 00:00: 00 2019-10-28 00:00:00 2019-10-28 12:00:43 [facility] Positive GBS test Positive GBS test Disease Resolve d 2019-0 8-04 00:00: 00 2019-10-28 00:00:00 2019-10-28 12:00:43 [facility] Encounter for elective induction of labor Encounter for elective induction of labor Disease Resolve d 2019-0 8-04 00:00: 00 2019-10-28 00:00:00 2019-10-28 12:00:43 [facility] Encounter for supervisio n of normal first in third trimester Encounter for supervisio n of normal first in third trimester Disease Resolve d 2018-02 00:00: 00 2019-10-28 00:00:00 2019-10-28 12:00:43 [facility] Labial abscess Labial abscess Disease Resolve d 2018-02 00:00: 00 2019-07-18 00:00:00 2019-07-18 10:03:19 [facility] Vaginal spotting Vaginal spotting Disease Resolve d 2018-02 00:00: 00 2019-07-18 00:00:00 2019-07-18 10:03:19 [facility] Allergies, Adverse Reactions, Alerts Allergy Name Allergy Type Status Severity Reaction(s) Onset Date Inactive Date Treating Clinician Comments Source HYDROCOD ONE DRUG INGREDI Active N/V 2018-02 00:00: 00 [facility] Hydrocod one Propensi ty to adverse reaction s Active Nausea and/or Vomiting 2018-02 00:00: 00 [facility] Social History Social Habit Start Date Stop Date Quantity Comments Source History SDOH Alcohol Frequency [facility] History SDOH Alcohol Std Drinks [facility] History SDOH Alcohol Binge [facility] Alcoholic beverage intake 2024-01-25 00:00:00 2024-01-25 00:00:00 Current drinker of alcohol (finding) [facility] Tobacco use and exposure 2023-12-26 00:00:00 2023-12-26 00:00:00 Smokeless tobacco non-user [facility] History of Social function 2023-12-26 00:00:00 2023-12-26 00:00:00 [facility] Exposure to SARS-CoV-2 (event) 2022-07-11 00:00:00 2022-07-21 10:22:00 Not sure [facility] Alcohol intake 2019-08-23 00:00:00 2019-08-23 00:00:00 Current drinker of alcohol (finding) [facility] Alcohol Comment 2019-02-04 00:00:00 2019-02-04 00:00:00 not during [facility] History of tobacco use 2019-01-28 00:00:00 Cigarette Smoker [facility] Sex assigned at 1990 00:00:00 1990 00:00:00 [facility] Smoking Status Start Date Stop Date Source Ex-smoker 2023-12-26 00:00:00 2023-12-26 [facility] Ordered Medication Name Filled Medication Name Start Date Stop Date Current Medication? Ordering Clinician Indication Dosage Frequency Signature (SIG) Comments Components Source etonogestre L (NEXPLANON) implant 68 mg 2023-02 22:15: 00 01-24 21:25 :00 No [id number] 68mg 68 mg, Subdermal, ONCE NOW, 1 dose, On Cathie 01/25/24 at 1615, Routine, Use approved by: PRODUCTION STATISTICAL CLERK [facility] etonogestre L (NEXPLANON) 68 mg implant 2023-02 15:16: 25 Yes 68mg 68 mg by Subdermal route once now. [facility] venlafaxine XR 150 mg 24 hr capsule 2023-02 1 00:00: 00 Yes [facility] amoxicillin -clavulanat e (AUGMENTIN) 875-125 mg per tablet - 00:00: 00 04-24 05:59 :00 No [id number] 1{tbl} Take 1 tablet by mouth in the morning and 1 tablet in the evening. Do all this for 10 days. [facility] amoxicillin -clavulanat e (AUGMENTIN) 875-125 mg per tablet 8-17 00:00: 00 10-10 04:59 :00 No [id number] 1{tbl} Take 1 tablet by mouth in the morning and 1 tablet in the evening. Do all this for 10 days. [facility] SERTRALINE 25 mg tablet 2019-02 2-14 00:00: 07-21 00:00 :00 No [id number] 25mg TAKE 1 TABLET BY MOUTH DAILY [facility] vitamin w/FA tablet 09-18 00:00: 00 07-21 00:00 :00 No [id number] 1{tbl} Take 1 tablet by mouth daily. [facility] docusate calcium 240 mg capsule 09-18 00:00: 07-21 00:00 :00 No [id number] 240mg Take 1 capsule by mouth once daily as needed for Constipati on. [facility] ferrous sulfate 325 mg (65 mg iron) tablet 09-18 00:00: 07-21 00:00 :00 No [id number] 325mg Take 1 tablet by mouth 2 (two) times daily. [facility] ibuprofen 600 mg tablet 09-18 00:00: 07-21 00:00 :00 No [id number] 600mg Take 1 tablet by mouth every 6 (six) hours as needed for Pain (scale 1-3) or Pain (scale 4-6) (Pain). Take with food or milk. [facility] vitamin w/FA tablet 09-18 00:00: 00 07-21 00:00 :00 No [id number] 1{tbl} Take 1 tablet by mouth daily. [facility] Immunizations Ordered Immunization Name Filled Immunization Name Date Status Comments Source SARS-COV-2 COVID-19 PFIZER VACCINE 2020-05-27 00:00:00 Completed [facility] SARS-COV-2 COVID-19 PFIZER VACCINE 2020-05-27 00:00:00 Completed [facility] SARS-COV-2 COVID-19 PFIZER VACCINE 2020-05-27 00:00:00 Completed [facility] SARS-COV-2 COVID-19 PFIZER VACCINE 2020-05-27 00:00:00 Completed [facility] SARS-COV-2 COVID-19 PFIZER VACCINE 2020-05-27 00:00:00 Completed [facility] SARS-COV-2 COVID-19 PFIZER VACCINE 2020-05-27 00:00:00 Completed [facility] SARS-COV-2 COVID-19 PFIZER VACCINE 2020-05-27 00:00:00 Completed [facility] SARS-COV-2 COVID-19 PFIZER VACCINE 2020-05-27 00:00:00 Completed [facility] SARS-COV-2 COVID-19 PFIZER VACCINE 2020-05-27 00:00:00 Completed [facility] SARS-COV-2 COVID-19 PFIZER VACCINE 2020-05-27 00:00:00 Completed [facility] SARS-COV-2 COVID-19 PFIZER VACCINE 2020-05-27 00:00:00 Completed [facility] SARS-COV-2 COVID-19 PFIZER VACCINE 2020-05-27 00:00:00 Completed [facility] SARS-COV-2 COVID-19 PFIZER VACCINE 2020-05-27 00:00:00 Completed [facility] SARS-COV-2 COVID-19 PFIZER VACCINE 2020-05-06 00:00:00 Completed [facility] SARS-COV-2 COVID-19 PFIZER VACCINE 2020-05-06 00:00:00 Completed [facility] SARS-COV-2 COVID-19 PFIZER VACCINE 2020-05-06 00:00:00 Completed [facility] SARS-COV-2 COVID-19 PFIZER VACCINE 2020-05-06 00:00:00 Completed [facility] SARS-COV-2 COVID-19 PFIZER VACCINE 2020-05-06 00:00:00 Completed [facility] SARS-COV-2 COVID-19 PFIZER VACCINE 2020-05-06 00:00:00 Completed [facility] SARS-COV-2 COVID-19 PFIZER VACCINE 2020-05-06 00:00:00 Completed [facility] SARS-COV-2 COVID-19 PFIZER VACCINE 2020-05-06 00:00:00 Completed [facility] SARS-COV-2 COVID-19 PFIZER VACCINE 2020-05-06 00:00:00 Completed [facility] SARS-COV-2 COVID-19 PFIZER VACCINE 2020-05-06 00:00:00 Completed [facility] SARS-COV-2 COVID-19 PFIZER VACCINE 2020-05-06 00:00:00 Completed [facility] SARS-COV-2 COVID-19 PFIZER VACCINE 2020-05-06 00:00:00 Completed [facility] SARS-COV-2 COVID-19 PFIZER VACCINE 2020-05-06 00:00:00 Completed [facility] TDAP (ADACEL) VACCINE 2019-07-04 00:00:00 Completed [facility] TDAP (ADACEL) VACCINE 2019-07-04 00:00:00 Completed [facility] TDAP (ADACEL) VACCINE 2019-07-04 00:00:00 Completed [facility] TDAP (ADACEL) VACCINE 2019-07-04 00:00:00 Completed [facility] TDAP (ADACEL) VACCINE 2019-07-04 00:00:00 Completed [facility] TDAP (ADACEL) VACCINE 2019-07-04 00:00:00 Completed [facility] TDAP (ADACEL) VACCINE 2019-07-04 00:00:00 Completed [facility] TDAP (ADACEL) VACCINE 2019-07-04 00:00:00 Completed [facility] TDAP (ADACEL) VACCINE 2019-07-04 00:00:00 Completed [facility] TDAP (ADACEL) VACCINE 2019-07-04 00:00:00 Completed [facility] TDAP (ADACEL) VACCINE 2019-07-04 00:00:00 Completed [facility] TDAP (ADACEL) VACCINE 2019-07-04 00:00:00 Completed [facility] TDAP (ADACEL) VACCINE 2019-07-04 00:00:00 Completed HPV 2013-02-13 00:00:00 Completed [facility] HPV 2013-02-13 00:00:00 Completed [facility] HPV 2013-02-13 00:00:00 Completed [facility] HPV 2013-02-13 00:00:00 Completed [facility] HPV 2013-02-13 00:00:00 Completed [facility] HPV 2013-02-13 00:00:00 Completed [facility] HPV 2013-02-13 00:00:00 Completed [facility] HPV 2013-02-13 00:00:00 Completed [facility] HPV 2013-02-13 00:00:00 Completed [facility] HPV 2013-02-13 00:00:00 Completed [facility] HPV 2013-02-13 00:00:00 Completed [facility] HPV 2013-02-13 00:00:00 Completed [facility] HPV 2013-02-13 00:00:00 Completed DTAP 2013-01-13 00:00:00 Completed [facility] DTAP 2013-01-13 00:00:00 Completed [facility] DTAP 2013-01-13 00:00:00 Completed [facility] DTAP 2013-01-13 00:00:00 Completed [facility] DTAP 2013-01-13 00:00:00 Completed [facility] DTAP 2013-01-13 00:00:00 Completed [facility] DTAP 2013-01-13 00:00:00 Completed [facility] DTAP 2013-01-13 00:00:00 Completed [facility] DTAP 2013-01-13 00:00:00 Completed [facility] DTAP 2013-01-13 00:00:00 Completed [facility] DTAP 2013-01-13 00:00:00 Completed [facility] DTAP 2013-01-13 00:00:00 Completed [facility] DTAP 2013-01-13 00:00:00 Completed TDAP 2004-09-13 00:00:00 Completed [facility] TDAP 2004-09-13 00:00:00 Completed [facility] TDAP 2004-09-13 00:00:00 Completed [facility] TDAP 2004-09-13 00:00:00 Completed [facility] TDAP 2004-09-13 00:00:00 Completed [facility] TDAP 2004-09-13 00:00:00 Completed [facility] TDAP 2004-09-13 00:00:00 Completed [facility] TDAP 2004-09-13 00:00:00 Completed [facility] TDAP 2004-09-13 00:00:00 Completed [facility] TDAP 2004-09-13 00:00:00 Completed [facility] TDAP 2004-09-13 00:00:00 Completed [facility] TDAP 2004-09-13 00:00:00 Completed [facility] TDAP 2004-09-13 00:00:00 Completed Hep B, Adol or Pedi Dosage 2002-04-13 00:00:00 Completed [facility] Hep B, Adol or Pedi Dosage 2002-04-13 00:00:00 Completed [facility] Hep B, Adol or Pedi Dosage 2002-04-13 00:00:00 Completed [facility] Hep B, Adol or Pedi Dosage 2002-04-13 00:00:00 Completed [facility] Hep B, Adol or Pedi Dosage 2002-04-13 00:00:00 Completed [facility] Hep B, Adol or Pedi Dosage 2002-04-13 00:00:00 Completed [facility] Hep B, Adol or Pedi Dosage 2002-04-13 00:00:00 Completed [facility] Hep B, Adol or Pedi Dosage 2002-04-13 00:00:00 Completed [facility] Hep B, Adol or Pedi Dosage 2002-04-13 00:00:00 Completed [facility] Hep B, Adol or Pedi Dosage 2002-04-13 00:00:00 Completed [facility] Hep B, Adol or Pedi Dosage 2002-04-13 00:00:00 Completed [facility] Hep B, Adol or Pedi Dosage 2002-04-13 00:00:00 Completed [facility] Hep B, Adol or Pedi Dosage 2002-04-13 00:00:00 Completed Hep B, Adol or Pedi Dosage 2002-01-13 00:00:00 Completed [facility] Hep B, Adol or Pedi Dosage 2002-01-13 00:00:00 Completed [facility] Hep B, Adol or Pedi Dosage 2002-01-13 00:00:00 Completed [facility] Hep B, Adol or Pedi Dosage 2002-01-13 00:00:00 Completed [facility] Hep B, Adol or Pedi Dosage 2002-01-13 00:00:00 Completed [facility] Hep B, Adol or Pedi Dosage 2002-01-13 00:00:00 Completed [facility] Hep B, Adol or Pedi Dosage 2002-01-13 00:00:00 Completed [facility] Hep B, Adol or Pedi Dosage 2002-01-13 00:00:00 Completed [facility] Hep B, Adol or Pedi Dosage 2002-01-13 00:00:00 Completed [facility] Hep B, Adol or Pedi Dosage 2002-01-13 00:00:00 Completed [facility] Hep B, Adol or Pedi Dosage 2002-01-13 00:00:00 Completed [facility] Hep B, Adol or Pedi Dosage 2002-01-13 00:00:00 Completed [facility] Hep B, Adol or Pedi Dosage 2002-01-13 00:00:00 Completed Hep B, Adol or Pedi Dosage 2001-11-13 00:00:00 Completed [facility] Varicella (varivax)(chicken pox) 2001-11-13 00:00:00 Completed [facility] Hep B, Adol or Pedi Dosage 2001-11-13 00:00:00 Completed [facility] Varicella (varivax)(chicken pox) 2001-11-13 00:00:00 Completed [facility] Hep B, Adol or Pedi Dosage 2001-11-13 00:00:00 Completed [facility] Varicella (varivax)(chicken pox) 2001-11-13 00:00:00 Completed [facility] Hep B, Adol or Pedi Dosage 2001-11-13 00:00:00 Completed [facility] Varicella (varivax)(chicken pox) 2001-11-13 00:00:00 Completed [facility] Hep B, Adol or Pedi Dosage 2001-11-13 00:00:00 Completed [facility] Varicella (varivax)(chicken pox) 2001-11-13 00:00:00 Completed [facility] Hep B, Adol or Pedi Dosage 2001-11-13 00:00:00 Completed [facility] Varicella (varivax)(chicken pox) 2001-11-13 00:00:00 Completed [facility] Hep B, Adol or Pedi Dosage 2001-11-13 00:00:00 Completed [facility] Varicella (varivax)(chicken pox) 2001-11-13 00:00:00 Completed [facility] Hep B, Adol or Pedi Dosage 2001-11-13 00:00:00 Completed [facility] Varicella (varivax)(chicken pox) 2001-11-13 00:00:00 Completed [facility] Hep B, Adol or Pedi Dosage 2001-11-13 00:00:00 Completed [facility] Varicella (varivax)(chicken pox) 2001-11-13 00:00:00 Completed [facility] Hep B, Adol or Pedi Dosage 2001-11-13 00:00:00 Completed [facility] Varicella (varivax)(chicken pox) 2001-11-13 00:00:00 Completed [facility] Hep B, Adol or Pedi Dosage 2001-11-13 00:00:00 Completed [facility] Varicella (varivax)(chicken pox) 2001-11-13 00:00:00 Completed [facility] Hep B, Adol or Pedi Dosage 2001-11-13 00:00:00 Completed [facility] Varicella (varivax)(chicken pox) 2001-11-13 00:00:00 Completed [facility] Hep B, Adol or Pedi Dosage 2001-11-13 00:00:00 Completed Varicella (varivax)(chicken pox) 2001-11-13 00:00:00 Completed TDAP 1995-08-14 00:00:00 Completed [facility] TDAP 1995-08-14 00:00:00 Completed [facility] TDAP 1995-08-14 00:00:00 Completed [facility] TDAP 1995-08-14 00:00:00 Completed [facility] TDAP 1995-08-14 00:00:00 Completed [facility] TDAP 1995-08-14 00:00:00 Completed [facility] TDAP 1995-08-14 00:00:00 Completed [facility] TDAP 1995-08-14 00:00:00 Completed [facility] TDAP 1995-08-14 00:00:00 Completed [facility] TDAP 1995-08-14 00:00:00 Completed [facility] TDAP 1995-08-14 00:00:00 Completed [facility] TDAP 1995-08-14 00:00:00 Completed [facility] TDAP 1995-08-14 00:00:00 Completed TDAP 1991-12-15 00:00:00 Completed [facility] TDAP 1991-12-15 00:00:00 Completed [facility] TDAP 1991-12-15 00:00:00 Completed [facility] TDAP 1991-12-15 00:00:00 Completed [facility] TDAP 1991-12-15 00:00:00 Completed [facility] TDAP 1991-12-15 00:00:00 Completed [facility] TDAP 1991-12-15 00:00:00 Completed [facility] TDAP 1991-12-15 00:00:00 Completed [facility] TDAP 1991-12-15 00:00:00 Completed [facility] TDAP 1991-12-15 00:00:00 Completed [facility] TDAP 1991-12-15 00:00:00 Completed [facility] TDAP 1991-12-15 00:00:00 Completed [facility] TDAP 1991-12-15 00:00:00 Completed TDAP 1990 00:00:00 Completed [facility] TDAP 1990 00:00:00 Completed [facility] TDAP 1990 00:00:00 Completed [facility] TDAP 1990 00:00:00 Completed [facility] TDAP 1990 00:00:00 Completed [facility] TDAP 1990 00:00:00 Completed [facility] TDAP 1990 00:00:00 Completed [facility] TDAP 1990 00:00:00 Completed [facility] TDAP 1990 00:00:00 Completed [facility] TDAP 1990 00:00:00 Completed [facility] TDAP 1990 00:00:00 Completed [facility] TDAP 1990 00:00:00 Completed [facility] TDAP 1990 00:00:00 Completed [facility] TDAP 1990 00:00:00 Completed [facility] TDAP 1990 00:00:00 Completed [facility] TDAP 1990 00:00:00 Completed [facility] TDAP 1990 00:00:00 Completed [facility] TDAP 1990 00:00:00 Completed [facility] TDAP 1990 00:00:00 Completed [facility] TDAP 1990 00:00:00 Completed [facility] TDAP 1990 00:00:00 Completed [facility] TDAP 1990 00:00:00 Completed [facility] TDAP 1990 00:00:00 Completed [facility] TDAP 1990 00:00:00 Completed [facility] TDAP 1990 00:00:00 Completed [facility] TDAP 1990 00:00:00 Completed TDAP 1990 00:00:00 Completed [facility] TDAP 1990 00:00:00 Completed [facility] TDAP 1990 00:00:00 Completed [facility] TDAP 1990 00:00:00 Completed [facility] TDAP 1990 00:00:00 Completed [facility] TDAP 1990 00:00:00 Completed [facility] TDAP 1990 00:00:00 Completed [facility] TDAP 1990 00:00:00 Completed [facility] TDAP 1990 00:00:00 Completed [facility] TDAP 1990 00:00:00 Completed [facility] TDAP 1990 00:00:00 Completed [facility] TDAP 1990 00:00:00 Completed [facility] TDAP 1990 00:00:00 Completed TDAP (ADACEL) VACCINE Unknown Completed [facility] DTAP Unknown Completed [facility] Hep B, Adol or Pedi Dosage Unknown Completed [facility] HPV Unknown Completed [facility] Varicella (varivax)(chicken pox) Unknown Completed [facility] SARS-COV-2 COVID-19 PFIZER VACCINE Unknown Completed [facility] TDAP (ADACEL) VACCINE Unknown Completed [facility] DTAP Unknown Completed [facility] Hep B, Adol or Pedi Dosage Unknown Completed [facility] HPV Unknown Completed [facility] Varicella (varivax)(chicken pox) Unknown Completed [facility] SARS-COV-2 COVID-19 PFIZER VACCINE Unknown Completed [facility] TDAP (ADACEL) VACCINE Unknown Completed [facility] DTAP Unknown Completed [facility] Hep B, Adol or Pedi Dosage Unknown Completed [facility] HPV Unknown Completed [facility] Varicella (varivax)(chicken pox) Unknown Completed [facility] TDAP (ADACEL) VACCINE Unknown Completed [facility] DTAP Unknown Completed [facility] Hep B, Adol or Pedi Dosage Unknown Completed [facility] HPV Unknown Completed [facility] Varicella (varivax)(chicken pox) Unknown Completed [facility] TDAP (ADACEL) VACCINE Unknown Completed [facility] DTAP Unknown Completed [facility] Hep B, Adol or Pedi Dosage Unknown Completed [facility] HPV Unknown Completed [facility] Varicella (varivax)(chicken pox) Unknown Completed [facility] TDAP (ADACEL) VACCINE Unknown Completed [facility] DTAP Unknown Completed [facility] Hep B, Adol or Pedi Dosage Unknown Completed [facility] HPV Unknown Completed [facility] Varicella (varivax)(chicken pox) Unknown Completed [facility] Vital Signs Vital Name Observation Time Observation Value Comments S ource Systolic blood pressure 2024-01-25 21:15:00 126 mm[Hg] [facility] Diastolic blood pressure 2024-01-25 21:15:00 82 mm[Hg] [facility] Heart rate 2024-01-25 21:15:00 85 /[facility] temperature 2024-01-25 21:15:00 36.89 Abby [facility] Respiratory rate 2024-01-25 21:15:00 16 /min [facility] Body height 2024-01-25 21:15:00 160 cm [facility] Body weight 2024-01-25 21:15:00 67.631 kg [facility] BMI 2024-01-25 21:15:00 26.41 kg/m2 [facility] Systolic blood pressure 2023-12-26 21:27:00 124 mm[Hg] [facility] Diastolic blood pressure 2023-12-26 21:27:00 76 mm[Hg] [facility] Heart rate 2023-12-26 21:27:00 79 /min Unive [facility] Respiratory rate 2023-12-26 21:27:00 18 /min [facility] Body height 2023-12-26 21:27:00 160 cm [facility] Body weight 2023-12-26 21:27:00 69.219 kg [facility] BMI 2023-12-26 21:27:00 27.03 kg/m2 [facility] Oxygen saturation in Arterial blood by Pulse oximetry 2023-12-26 21:27:00 98 /min [facility] Systolic blood pressure 2022-07-21 15:43:00 118 mm[Hg] [facility] Diastolic blood pressure 2022-07-21 15:43:00 82 mm[Hg] [facility] Heart rate 2022-07-21 15:43:00 83 /min [facility] Respiratory rate 2022-07-21 15:43:00 18 /min [facility] Body height 2022-07-21 15:43:00 160 cm [facility] Body weight 2022-07-21 15:43:00 89.359 kg [facility] BMI 2022-07-21 15:43:00 34.90 kg/m2 [facility] Systolic blood pressure 2022-04-13 16:02:00 137 mm[Hg] [facility] Diastolic blood pressure 2022-04-13 16:02:00 85 mm[Hg] [facility] Heart rate 2022-04-13 16:02:00 70 /min Unive [facility] Body temperature 2022-04-13 16:02:00 36.72 Abby [facility] Respiratory rate 2022-04-13 16:02:00 18 /min [facility] Body height 2022-04-13 16:02:00 157.5 cm [facility] Body weight 2022-04-13 16:02:00 87.601 kg [facility] BMI 2022-04-13 16:02:00 35.32 kg/m2 [facility] Oxygen saturation in Arterial blood by Pulse oximetry 2022-04-13 16:02:00 100 /min [facility] Systolic blood pressure 2021-09-29 16:04:00 125 mm[Hg] [facility] Diastolic blood pressure 2021-09-29 16:04:00 89 mm[Hg] [facility] Heart rate 2021-09-29 16:04:00 80 /min Unive [facility] Body temperature 2021-09-29 16:04:00 36.89 Abby [facility] Respiratory rate 2021-09-29 16:04:00 16 /min [facility] Body height 2021-09-29 16:04:00 160 cm [facility] Body weight 2021-09-29 16:04:00 80.74 kg [facility] BMI 2021-09-29 16:04:00 31.53 kg/m2 [facility] Oxygen saturation in Arterial blood by Pulse oximetry 2021-09-29 16:04:00 96 /min [facility] Procedures Procedure Date / Time Performed Performing Clinician Source AUTHORIZATION TO RELEASE PHI TO [facility] 2022-07-21 05:01:00 Doctor Unassigned, [place] [facility] PATIENT FINANCIAL POLICY 2022-04-13 15:57:24 Doctor Unassigned, [place] [facility] ASSIGNMENT OF BENEFITS 2021-09-29 15:59:55 Docto r Unassigned, Bladen [facility] Encounters Start Date/Time End Date/Time Encounter Type Admission Type Attending [facility] Facility Care Department Encounter ID Source 2020-12-11 10:09:44 Outpatient P [facility] WILLIE [id number] [facility] 2024-02-26 00:00:00 2024-02-26 12:16:08 Letter (Out) [facility] (JULIANN) 1.2.840.114 350.1.13.10 4.2.7.2.686 [id number] [facility] 2024-01-12 00:00:00 2024-02-17 18:19:22 Patient Secure Msg Doctor Unassigned, Bladen Doctor Unassigned, Bladen [facility] (JULIANN) 1.2.840.114 350.1.13.10 4.2.7.2.686 [id number] [facility] 2024-01-25 15:00:00 2024-01-25 15:30:00 [facility] 1.2.0.114 350.1.13.10 4.2.7.2.686 [id number] [facility] 2024-01-25 15:00:00 2024-01-25 15:00:00 Outpatient R HERNANDEZ-DIAZ S, DEBI HERNANDEZ-DIAZ S, DEBI [facility] [id number] [facility] 2023-12-26 15:15:00 2023-12-26 15:48:11 Outpatient R HERNANDEZ-DIAZ S, DEBI HERNANDEZ-DIAZ S, DEBI [facility] [id number] [facility] 2023-12-26 15:15:00 2023-12-26 15:48:11 Office Visit Hernandez-Diaz s, [facility] 1.2.840.114 350.1.13.10 4.2.7.2.686 [id number] [facility] 2022-08-05 00:00:00 2022-08-05 00:00:00 Patient Secure Msg Doctor Unassigned, [place] [facility] 1.2.840.114 350.1.13.10 4.2.7.2.686 [id number] [facility] 2022-08-04 00:00:00 2022-08-04 00:00:00 [facility] 1.2840.114 350.1.13.10 4.2.7.2.686 [id number] [facility] 2022-07-29 00:00:00 2022-07-29 00:00:00 Patient Secure Msg Doctor Unassigned, [place] [facility] 1.2840.114 350.1.13.10 4.2.7.2.686 [id number] [facility] 2022-07-22 00:00:00 2022-07-22 00:00:00 Telephone Supriya Devisol [facility] 1.20.114 350.1.13.10 4.2.7.2.686 [id number] [facility] 2022-07-21 10:30:00 2022-07-21 11:06:35 Outpatient R DEBI DEVI MARISOL [facility] [id number] [facility] 2022-07-21 10:30:00 2022-07-21 11:06:35 Office Visit Supriya Devisol [facility] 1.2840.114 350.1.13.10 4.2.7.2.686 [id number] [facility] 2022-07-21 00:00:00 2022-07-21 00:00:00 Orders Only Doctor Unassigned, Bladen [facility] 1.0.114 350.1.13.10 4.2.7.2.686 [id number] [facility] 2022-07-07 00:00:00 2022-07-07 00:00:00 Telephone Debi Devi [facility] 1.0.114 350.1.13.10 4.2.7.2.686 [id number] [facility] 2022-04-19 00:00:00 2022-04-19 00:00:00 Refill Ilene Lau [facility] 1..114 350.1.13.10 4.2.7.2.686 [id number] [facility] 2022-04-13 10:00:00 2022-04-13 10:20:00 Urgent Care Ilene Lau Unknown, Attending [facility] 1.114 350.1.13.10 4.2.7.2.686 [id number] [facility] 2022-04-13 10:00:00 2022-04-13 10:00:00 Outpatient R ILENE LAU [facility] [id number] [facility] 2022-04-13 00:00:00 2022-04-13 00:00:00 Orders Only Doctor Unassigned, Bladen [facility] 1.2.114 350.1.13.10 4.2.7.2.686 [id number] [facility] 2021-09-29 11:00:00 2021-09-29 11:20:00 Urgent Care Sid, Ilene [facility] 1..114 350.1.13.10 4.2.7.2.686 [id number] [facility] 2021-09-29 11:00:00 2021-09-29 11:00:00 Outpatient ILENE GARCÍA [facility] [id number] [facility] 2021-09-29 00:00:00 2021-09-29 00:00:00 Orders Only Doctor Unassigned, Bladen [facility] 1..840.114 350.1.13.10 4.2.7.2.686 [id number] [facility] 2021-02-10 16:00:00 2021-02-10 16:23:14 Laboratory Only Only, Adc Pob2 Test Mahesh Valdovinos [facility] 1..840.114 350.1.13.10 4.2.7.2.686 [id number] [facility] 2021-02-10 16:00:00 2021-02-10 16:00:00 Outpatient R MAHESH VALDOVINOS [facility] [id number] [facility] 2021-02-09 18:15:00 2021-02-09 18:30:00 Laboratory Only Only, Ang Db Test Didi Rouse [facility] 1..840.114 350.1.13.10 4.2.7.2.686 [id number] [facility] 2021-02-09 18:15:00 2021-02-09 18:15:00 Outpatient DIDI LUCAS [facility] [id number] [facility] 2020-05-27 12:30:00 2020-05-27 12:30:00 Outpatient PAIGE GONZALEZ [facility] [id number] [facility] 2020-05-06 12:20:00 2020-05-06 12:20:00 Outpatient MAHESH VALDOVINOS [facility] [id number] [facility] 2020-04-27 09:00:00 2020-04-27 09:00:00 Outpatient Fabián SAENZ MARYA [facility] [id number] [facility] 2020-03-24 00:00:00 2020-03-24 00:00:00 [facility] 1.2.840.114 350.1.13.10 4.2.7.2.686 [id number] [facility] 2020-03-10 00:00:00 2020-03-10 00:00:00 Patient Secure Shirley Shay [facility] 1.2.840.114 350.1.13.10 4.2.7.2.686 [id number] [facility] 2020-03-09 10:30:00 2020-03-09 10:30:00 [id number] 2020-01-31 00:00:00 2020-01-31 00:00:00 Patient Secure Shirley Shay [facility] 1.2.840.114 350.1.13.10 4.2.7.2.686 [id number] [facility] 2019-12-05 08:00:00 2019-12-05 08:00:00 Outpatient Fabián CAM HURSTEN [facility] [id number] [facility] 2019-11-25 13:30:00 2019-11-25 13:30:00 Outpatient CAM RODRIGUEZEN [facility] [id number] [facility] 2019-10-28 11:30:00 2019-10-28 11:30:00 [facility] [id number] [facility] 2019-10-11 11:15:00 2019-10-11 11:15:00 [facility] [id number] [facility] 2019-09-17 15:00:00 2019-09-17 15:00:00 Outpatient R [facility] [id number] [facility] 2019-09-13 15:30:00 2019-09-13 15:30:00 Outpatient R SHIRLEY HURST [facility] [id number] [facility] 2019-09-05 09:15:00 2019-09-05 09:15:00 Outpatient R [facility] [id number] [facility] 2019-09-04 11:30:00 2019-09-04 11:30:00 Outpatient R LETTY MARYA [facility] [id number] [facility] 2019-08-28 00:00:00 2019-08-28 00:00:00 Patient Secure Msg Doctor Unassigned, Bladen [facility] 1.2.840.114 350.1.13.10 4.2.7.2.686 [id number] [facility] 2019-08-23 13:15:00 2019-08-23 13:15:00 Outpatient R SHIRLEY HURST [facility] [id number] [facility] 2019-08-22 11:15:00 2019-08-22 11:15:00 Outpatient R SHIRLEY HURST [facility] [id number] [facility] 2019-08-08 10:00:00 2019-08-08 10:00:00 Outpatient R MARYA SAENZ [facility] [id number] [facility] 2019-08-02 09:00:00 2019-08-02 09:00:00 Outpatient R MARYA SAENZ [facility] [id number] [facility] 2019-07-18 08:45:00 2019-07-18 08:45:00 Outpatient R ARIS SHIRLEY [facility] [id number] [facility] 2019-07-11 08:00:00 2019-07-11 08:00:00 Outpatient R [facility] [id number] [facility] 2019-07-04 08:00:00 2019-07-04 08:00:00 Outpatient R MARYA SAENZ [facility] [id number] [facility] 2019-06-06 08:30:00 2019-06-06 08:30:00 Outpatient R SHIRLEY HURST [facility] [id number] [facility] 2019-05-09 08:30:00 2019-05-09 08:30:00 Outpatient R SHIRLEY HURST [facility] [id number] [facility] 2019-05-06 08:30:00 2019-05-06 08:30:00 Outpatient R SHIRLEY HURST [facility] [id number] [facility] 2019-05-03 08:00:00 2019-05-03 08:00:00 Outpatient P [facility] [id number] [facility] 2019-04-16 08:45:00 2019-04-16 08:45:00 Outpatient R [facility] [id number] [facility] 2019-04-08 08:00:00 2019-04-08 08:00:00 Outpatient R MARYA SAENZ [facility] [id number] [facility]
[2024-05-01 12:06] LABS: Absolute Eosinophils 0.1 K/uL (0-0.5); Absolute Lymphocytes (CBC) 2.2 K/uL (0.7-4.9); Absolute Monocytes 0.3 K/uL (0.1-1.3); Absolute Neutrophil 3.1 K/uL (1.8-8.0); Basophils % 0.4 % (0-1.3); Eosinophils % 1.1 % (0-4.4); Hematocrit 34.8 % (36.0-45.0); Hemoglobin 12.1 g/dL (12.0-15.0); Lymphocytes % 38.7 % (15.3-44.8); MCH 33.4 pg (27.0-35.0); MCHC 34.8 g/dL (32.0-36.0); MCV 96.2 fL (80-100); MPV 9.7 fL (7.6-11.3); Neutrophils % 54.8 % (41.7-73.7); Nucleated Red Blood Cells % 0.1 % (0-0); Platelets 268 thou/uL (152-406); RBC Red Blood Cell Count 3.62 M/uL (3.86-4.86); Red Cell Distribution Width 12.2 % (12.1-15.2); Specific Gravity 1.025 (1.005-1.030)
[2024-05-01 12:07] LABS: Specific Gravity 1.025 (1.005-1.030); Sqamous Epithelial None Seen /HPF (None Seen); Urine Bacteria None Seen /HPF (<20); Urine Bilirubin NEGATIVE (Negative); Urine Blood Trace (Negative); Urine Clarity Clear (Clear); Urine Color Light-Yellow (Yellow); Urine Culture Reflex Order NOT NEEDED; Urine Glucose NEGATIVE (Negative); Urine Ketones NEGATIVE (Negative); Urine Micro Reflex YN NO BILL MICROSCOPIC; Urine Mucus Slight /HPF (None Seen); Urine Nitrite NEGATIVE (Negative); Urine Protein NEGATIVE (Negative); Urine RBC <5 /HPF (None Seen); Urine Urobilinogen Normal (Normal); Urine WBC <5 /HPF (<5)
[2024-05-01] MEDS ORDERED: KETOROLAC 30 MG/ML INJ ONE (12:08)
--- NOTE | 2024-05-01 12:15 | RAD REPORT ---
EXAM: CT brain without contrast HISTORY: HEADACHE COMPARISON: None TECHNIQUE: Multiple contiguous axial images were obtained and a CT of the brain without contrast. Sag ittal and coronal reformats were performed. One or more of the following dose reduction techniques were used: Automated exposure control, adjust ment of the mA and/or kV according to patient size, and/or iterative reconstruction. FINDINGS: No evidence of hydrocephalus, intracranial hemorrhage, or extra-axial fluid collection. The brain is normal in morphology. No evidence of midline shift or areas of brain edema. The calvarium is intact. The visualized paranasal sinuses and mastoid air cells are essentially clear . IMPRESSION: No evidence of acute intracranial abnormality.
[2024-05-01 12:33] LABS: ALT/SGPT 19 U/L (13-56); AST/SGOT 17 U/L (15-37); Albumin 3.6 g/dL (3.4-5.0); Albumin/Globulin Ratio 0.9 (1.1-1.8); Alkaline Phosphatase 40 U/L (45-117); Anion Gap 8.2 mEq/L (5.0-15.0); BUN Blood Urea Nitrogen 15 mg/dL (7-18); Bicarbonate 24 mEq/L (21-32); Bilirubin Total 0.3 mg/dL (0.2-1.0); Globulin 3.9 g/dL (2.3-3.5); Glomerular Filtration Rate 115 ml/min (=/>90); Glucose Level 86 mg/dL (74-106); Potassium 4.2 mEq/L (3.5-5.1); Protein, Total 7.5 g/dL (6.4-8.2); Sodium Level 137 mEq/L (136-145)
[2024-05-01 12:36] LABS: Bilirubin Direct < 0.2 mg/dL (0-0.2); Bilirubin Indirect, Calculated 0.1 mg/dL (0.2-0.8)
--- NOTE | 2024-05-01 12:52 | EDPHYS ---
Physician Documentation [facility] Name: Darwin Carmona Age: 33 yrs Sex: Female : 1990 Arrival Date: 05/01/2024 Time: 10:28 Bed 14 Private MD: ED Physician Gokul Mejia HPI: 05/01 11:22 This 33 yrs old Female presents to ER via Ambulatory with complaints of Severe Migraine.sp3 11:22 33-year-old female with no significant past medical history now presents to the ED with sp3 chief complaint headache for the last 2 to 3 weeks worse during the day and uses at night. Patient has had no prior imaging or prior workups or prior headaches of this magnitude in the past. She called her PCP who advised her to come to the ED for further evaluation. She denies any neck pain, changes in vision, other neurological complaints, numbness or tingling, chest pain, shortness of breath, abdominal pain, vomiting, diarrhea but does endorse nausea. Remainder of ROS negative. She denies , known sick contacts, travel history or prolonged immobilization. She also denies trauma.. 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 - Infectious Disease History:: Denies. - Social history:: Smoking status: Patient denies any tobacco usage or history of. ROS: 11:23 Constitutional: Negative for fever, chills, and weight loss, Eyes: Negative for injury, sp3 pain, redness, and discharge, ENT: Negative for injury, pain, and discharge, Neck: Negative for injury, pain, and swelling, Cardiovascular: Negative for chest pain, palpitations, and edema, Respiratory: Negative for shortness of breath, cough, wheezing, and pleuritic chest pain, Abdomen/GI: Negative for abdominal pain, nausea, vomiting, diarrhea, and constipation, Back: Negative for injury and pain, MS/Extremity: Negative for injury and deformity, Skin: Negative for injury, rash, and discoloration, Psych: Negative for depression, anxiety, suicide ideation, homicidal ideation, and hallucinations, Allergy/Immunology: Negative for hives, rash, and allergies, Endocrine: Negative for neck swelling, polydipsia, polyuria, polyphagia, and marked weight changes, Hematologic/Lymphatic: Negative for swollen nodes, abnormal bleeding, and unusual bruising, 11:23 All other systems are negative, Exam: 11:24 Constitutional: This is a well developed, well nourished patient who is awake, alert, sp3 and in no acute distress. Head/Face: Normocephalic, atraumatic. Eyes: Pupils equal round and reactive to light, extra-ocular motions intact. Lids and lashes normal. Conjunctiva and sclera are non-icteric and not injected. Cornea within normal limits. Periorbital areas with no swelling, redness, or edema. ENT: Nares patent. No nasal discharge, no septal abnormalities noted. External auditory canals are clear. Oropharynx with no redness, swelling, or masses, exudates, or evidence of obstruction, uvula midline. Mucous membranes moist. Neck: Trachea midline, no thyromegaly or masses palpated, and no cervical lymphadenopathy. Supple, full range of motion without nuchal rigidity, or vertebral point tenderness. No Meningismus. Chest/axilla: Normal chest wall appearance and motion. Nontender with no deformity. No lesions are appreciated. Cardiovascular: Regular rate and rhythm with a normal S1 and S2. No gallops, murmurs, or rubs. Normal PMI, no JVD. No pulse deficits. Respiratory: Lungs have equal breath sounds bilaterally, clear to auscultation and percussion. No rales, rhonchi or wheezes noted. No increased work of breathing, no retractions or nasal flaring. Abdomen/GI: Soft, non-tender, with normal bowel sounds. No distension or tympany. No guarding or rebound. No evidence of tenderness throughout. Back: No spinal tenderness. No costovertebral tenderness. Full range of motion. Skin: Warm, dry with normal turgor. Normal color with no rashes, no lesions, and no evidence of cellulitis. MS/ Extremity: Pulses equal, no cyanosis. Neurovascular intact. Full, normal range of motion. Neuro: Awake and alert, GCS 15, oriented to person, place, time, and situation. Cranial nerves II-XII grossly intact. Motor strength 5/5 in all extremities. Sensory grossly intact. Cerebellar exam normal. Normal gait. Psych: Awake, alert, with orientation to person, place and time. Behavior, mood, and affect are within normal limits. Vital Signs: 11:06 BP 110 / 64; Pulse 67; Resp 15; Temp 97.6; Pulse Ox 100% on R/A; Weight 64.41 kg; cm10 Height 5 ft. 2 in. ; Pain 7/10; 13:41 BP 108 / 68; Pulse 67; Resp 18; Temp 97.8; Pulse Ox 99% on R/A; ph 11:06 Body Mass Index 25.97 (64.41 kg, 157.48 cm) cm10 11:06 Pain Scale: Adult cm10 MDM: 10:39 Medical Screening Exam initiated sp3 11:24 Data reviewed: vital signs, nurses notes, lab test result(s), radiologic studies. ED sp3 course: 33-year-old female with new onset headache. Differential diagnosis is broad and includes intracranial pathology including mass, idiopathic headache, new onset migraine, electrolyte deficiency, thyroid abnormality, among others. I am not highly suspicious of trauma induced pathology or infection. Workup will include CT scan of the head, general labs including thyroid study, and treatment with ketorolac IV. Neurological exam is normal and vital signs are normal. Patient is in no acute distress. Disposition pending workup and patient course.. 12:51 ED course: Full workup negative. Patient feeling better and we will discharge her on sp3 NSAID and tramadol. Follow-up with neurology as needed.. 05/01 11:22 Order name: Basic Metabolic Panel; Complete Time: 12:39 sp3 05/01 11:22 Order name: CBC with Diff; Complete Time: 12: sp3 05/01 11:22 Order name: Hepatic Function; Complete Time: 12:39 sp3 05/01 11:22 Order name: Magnesium; Complete Time: 12:39 sp3 05/01 11:22 Order name: TSH; Complete Time: 12:39 sp3 05/01 11:22 Order name: UAM; Complete Time: 12:26 sp3 05/01 11:22 Order name: Test, Urine; Complete Time: 12:26 sp3 05/01 11:22 Order name: CT Head Brain wo Cont; Complete Time: 12:26 sp3 05/01 11:22 Order name: Labs collected and sent; Complete Time: 12:25 sp3 05/01 11:22 Order name: NPO; Complete Time: 12:04 sp3 Administered Medications: 12:48 Not Given (Other Intervention Used): [id number] mg IVP once ph 12:48 Drug: Ketorolac IM 30 mg IM once Route: IM; Site: right deltoid; ph 13:42 Follow up: Response: No adverse reaction; Pain is decreased ph Disposition Summary: 05/01/24 12:51 Discharge Ordered Notes: Location: Home sp3 Condition: Stable sp3 Diagnosis - Headache sp3 Followup: sp3 - With: Phi Arroyo MD - When: Upon discharge from the Emergency Department - Reason: Recheck today's complaints Discharge Instructions: - Discharge Summary Sheet sp3 - General Headache Without Cause sp3 Forms: - Work release form ph - Medication Reconciliation Form sp3 - Antibiotic Education sp3 - Prescription Opioid Use sp3 - Patient Portal Instructions sp3 - Leadership Thank You Letter sp3 Prescriptions: - Diclofenac Sodium 75 mg Oral Tablet Sustained Release - take 1 tablet ORAL route 2 times per day; 30 tablet; Refills: 0, Product sp3 Selection Permitted - Tramadol 50 mg Oral Tablet - take 1 tablet ORAL route every 8 hours as needed; 12 tablet; Refills: 0, sp3 Product Selection Permitted Signatures: Dispatcher [employer] EDSyada Black, RN RN Gokul Christianson MD MD sp3 Carlotta Hairston RN RN cm10 Corrections: (The following items were deleted from the chart) 11:23 11:23 BASIC METABOLIC PANEL+C.LAB.BRZ ordered. EDMS EDMS 11:23 11:23 CBC+H.LAB.BRZ ordered. EDMS EDMS 11:23 11:23 HEPATIC FUNCTION+C.LAB.BRZ ordered. EDMS EDMS 11:23 11:23 MAGNESIUM+C.LAB.BRZ ordered. EDMS EDMS 11:23 11:23 THYROID STIMULAT HORMONE+C.LAB.BRZ ordered. EDMS EDMS 11:23 11:23 Urinalysis W/Microscopic+U.LAB.BRZ ordered. EDMS EDMS 11:23 11:23 Test, Urine+UC.LAB.BRZ ordered. EDMS EDMS 11:23 11:23 Head Brain Wo Cont+CT.RAD.BRZ ordered. EDMS EDMS
--- NOTE | 2024-05-01 12:52 | ER ---
Nurse's Notes [facility] Name: Darwin Carmona Age: 33 yrs Sex: Female : 1990 Arrival Date: 05/01/2024 Time: 10:28 Bed 14 Private MD: Diagnosis: Headache Presentation: 05/01 11:06 Chief complaint: Patient states: Headache onset 2 weeks ago. Pt states that she has cm10 been taking Excedrin with some relief. Pt reports having nausea, light sensitivity, dizziness and blurred vision. Coronavirus screen: Client denies travel out of the [place] in the last 14 days. Ebola Screen: Patient denies travel to an Ebola-affected area in the 21 days before illness onset. Initial Sepsis Screen: Does the patient meet any 2 criteria? No. Patient's initial sepsis screen is negative. Does the patient have a suspected source of infection? No. Patient's initial sepsis screen is negative. Risk Assessment: Do you want to hurt yourself or someone else? Patient reports no desire to harm self or others. Onset of symptoms is unknown. 11:06 Method Of Arrival: Ambulatory cm10 11:06 Acuity: EVANGELINA 3 cm10 Triage Assessment: 11:08 General: Appears in no apparent distress. uncomfortable, Behavior is calm, cooperative. cm10 Pain: Complains of pain in head Pain currently is 7 out of 10 on a pain scale. Quality of pain is described as throbbing. Neuro: No deficits noted. Level of Consciousness is awake, alert, obeys commands, Oriented to person, place, time, situation, Appropriate for age Reports headache. Respiratory: No deficits noted. Airway is patent Respiratory effort is even, unlabored, Respiratory pattern is regular, symmetrical. 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 - Infectious Disease History:: Denies. - Social history:: Smoking status: Patient denies any tobacco usage or history of. Screenin:39 [facility] ED Fall Risk Assessment (Adult) History of falling in the last 3 months, ph including since admission No falls in past 3 months (0 pts) Confusion or Disorientation No (0 pts) Intoxicated or Sedated No (0 pts) Impaired Gait No (0 pts) Mobility Assist Device Used No (0 pt) Altered Elimination No (0 pt) Score/Fall Risk Level 0 - 2 = Low Risk Oriented to surroundings, Maintained a safe environment, Hourly rounding (assess needs \T\ fall precautionary measures) done. Abuse screen: Denies threats or abuse. Denies injuries from another. Nutritional screening: No deficits noted. Tuberculosis screening: No symptoms or risk factors identified. Assessment: 12:40 General: Appears in no apparent distress. comfortable, well groomed, Behavior is calm, ph cooperative. Pain: Complains of pain in head. Neuro: Level of Consciousness is awake, alert, obeys commands, Oriented to person, place, time, situation, Reports dizziness, headache photophobia. Cardiovascular: Capillary refill < 3 seconds in bilateral fingers Patient's skin is warm and dry. Respiratory: Airway is patent Respiratory effort is even, unlabored, Respiratory pattern is regular, symmetrical. GI: Reports nausea. Derm: Skin is pink, warm \T\ dry. 13:42 Reassessment: Patient appears in no apparent distress at this time. Patient and/or ph family updated on plan of care and expected duration. Pain level reassessed. Patient is alert, oriented x 3, equal unlabored respirations, skin warm/dry/pink. Patient states feeling better. Patient states symptoms have improved. Vital Signs: 11:06 BP 110 / 64; Pulse 67; Resp 15; Temp 97.6; Pulse Ox 100% on R/A; Weight 64.41 kg; cm10 Height 5 ft. 2 in. ; Pain 7/10; 13:41 BP 108 / 68; Pulse 67; Resp 18; Temp 97.8; Pulse Ox 99% on R/A; ph 11:06 Body Mass Index 25.97 (64.41 kg, 157.48 cm) cm10 11:06 Pain Scale: Adult cm10 ED Course: 10:32 Patient arrived in ED. cj3 10:32 Wilfrid Daveis DO is Attending Physician. ms3 10:38 Attending Physician role handed off by Wilfrid Davies DO sp3 10:38 Gokul Mejia MD is Attending Physician. sp3 11:07 Triage completed. cm10 11:08 Arm band placed on left wrist. Patient placed in waiting room. cm10 11:09 Sayda Rojas, RN is Primary Nurse. ph 12:00 CT Head Brain wo Cont In Process Unspecified. EDMS 12:25 Missed attempt(s): 22 gauge in left antecubital area. Bleeding controlled, band aid ph applied, catheter tip intact. Missed attempt(s): 22 gauge in left antecubital area. Bleeding controlled, band aid applied, catheter tip intact. 12:40 Patient has correct armband on for positive identification. Bed in low position. Call ph light in reach. Side rails up X 1. Pulse ox on. NIBP on. 12:51 Phi Arroyo MD is Referral Physician. sp3 13:41 No provider procedures requiring assistance completed. Patient did not have IV access ph during this emergency room visit. Administered Medications: 12:48 Not Given (Other Intervention Used): [id number] mg IVP once ph 12:48 Drug: Ketorolac IM 30 mg IM once Route: IM; Site: right deltoid; ph 13:42 Follow up: Response: No adverse reaction; Pain is decreased ph Medication: 12:39 VIS not applicable for this client. ph Outcome: 12:51 Discharge ordered by . sp3 13:42 Discharged to home ambulatory, ph 13:42 Condition: good 13:42 Discharge instructions given to patient, Instructed on discharge instructions, follow up and referral plans. medication usage, Demonstrated understanding of instructions, follow-up care, medications, Prescriptions given X 2, 13:42 Patient left the ED. ph Signatures: Dispatcher [employer] EDME Sayda Rojas, RN RN ph Wilfrid Davies DO DO ms3 Gokul Mejia MD MD sp3 Carlotta Hairston RN RN cm10 Kaylynn Wilhelm 3
[2024-05-01 19:12] VITALS: BP 108/68; TEMP 97.8; O2SAT 99
== END 2024-05-01 13:42 | disposition home or self-care (01) ==
LOC: ER 10:28
DX: R51.9 Headache, unspecified (principal)
CPT/HCPCS: 36415; 70450; 80048; 80076; 81001; 81025; 83735; 84443; 85025